=== PATIENT | female | born 1950 | race Caucasian/White ===

== ENCOUNTER 2016-09-30 11:51 | Inpatient (IN) | payer OTHER, MEDICARE ==
[~2016-09-30] VITALS: Ht 160 cm; Wt 74.8 kg
--- NOTE | 2016-09-30 12:05 | NUR ---
PT TO C/O SOB. STATES SHE WEARS O2 2.5L AT NIGHT. PT CALLED DR RIVERA WHO ADVISED PT TO COME TO ED FOR EVAL. RA SATS 94% IN TRIAGE. NO OBVIOUS RESP DISTRESS NOTED. PT DENIES PAIN.
--- NOTE | 2016-09-30 12:31 | ED DYSPNEA/ASTHMA COMPLAINT ---
History of Present Illness General Chief Complaint: Dyspnea (COPD, CHF, Other) Stated Complaint: LOW O2 SENT BY MIGUEL Source: patient, old records Exam Limitations: no limitations Vital Signs & Intake/Output Vital Signs & Intake/Output Vital Signs Date Time Temp Pulse Resp B/P Pulse O2 O2 Flow FiO2 Ox Delivery Rate 10/02 0000 96 Nasal 1.0L Cannula 10/01 2340 98.6 80 20 90/50 94 Nasal 2.0L Cannula 10/01 2046 94 Nasal 2.0L Cannula 10/01 1702 94 Nasal 2.0L Cannula 10/01 1558 98.5 84 19 110/60 96 Nasal 2.0L Cannula 10/01 1549 Nasal 2.0L Cannula ED Intake and Output 10/02 0000 10/01 1200 Intake Total 1070 260 Output Total Balance 1070 260 Intake, IV 50 20 Intake, Oral 1020 240 Number 0 1 Bowel Movements Allergies Coded Allergies: ampicillin (UNKNOWN 11/28/15) atorvastatin (UNKNOWN 11/28/15) ciprofloxacin (From CIPRO) (UNKNOWN 11/28/15) dicyclomine (UNKNOWN 11/28/15) estradiol (UNKNOWN 11/28/15) simvastatin (UNKNOWN 11/28/15) sulfamethoxazole (From SEPTRA) (DIARRHEA 11/28/15) trimethoprim (From SEPTRA) (DIARRHEA 11/28/15) Triage Note: PT TO C/O SOB. STATES SHE WEARS O2 2.5L AT NIGHT. PT CALLED DR RIVERA WHO ADVISED PT TO COME TO ED FOR EVAL. RA SATS 94% IN TRIAGE. NO OBVIOUS RESP DISTRESS NOTED. PT DENIES PAIN. Triage Nurses Notes Reviewed? yes Onset: Gradual Duration: day(s): (5) Timing: recent history Severity: moderate Activities at Onset: none Prior Episodes/Possible Cause: occasional episodes Modifying Factors: Improves With: immobilization. HPI: Patient is a 66-year-old female with history of COPD presenting to the emergency department which chief complaint increasing shortness of breath 5 days. She reports that she usually uses 2 L nasal cannula at night but has required oxygen all day everyday for 5 days. She called her planting material carrier who told her to come to the emergency department for evaluation. She reports nonproductive cough. No fevers or chills. No centrality or denies recent antibiotic use. Exertion seems to make the symptoms worse nothing seems to make it better. Patient also reports she feels tight and has been wheezing more often. Denies chest pain or palpitations. (VARGAS VALERA,ELVA) Reconcile Medications Albuterol Sulfate (Ventolin Hfa) 90 MCG HFA.AER.AD 2 PUF INH Q4-6 PRN PRN BREATHING PROBLEMS (Reported) Amitriptyline HCl 25 MG TABLET 1 TAB PO QPM FIBRO (Reported) Cholecalciferol (Vitamin D3) (Vitamin D) 2,000 UNIT TABLET 4,000 UNIT PO DAILY SUPP (Reported) Citalopram Hydrobromide (Citalopram HBr) 40 MG TABLET 1 TAB PO DAILY MENTAL HEALTH (Reported) Clonazepam 0.5 MG TABLET 1 TAB PO DAILY NEEDED AXNITY (Reported) Cyanocobalamin (Vitamin B-12) 1,000 MCG TABLET 1 TAB PO DAILY SUPP (Reported) Fish Oil/Borage/Flax/Om3,6,9#1 (Loring 3-6-9 1,200 MG Softgel) 1,200 MG CAPSULE 1 CAP PO DAILY SUUP (Reported) Fluticasone/Salmeterol (Advair 250-50 Diskus) 250 MCG-50 MCG/DOSE BLST.W.DEV 1 PUF INH BID BREATHING PROBLEMS (Reported) Melatonin (Melatin) 3 MG TABLET 3 MG PO DAILY INSOMNIA (Reported) Metformin HCl (Metformin HCl ER) 500 MG TAB.ER.24H 1 TAB PO SEE ADMIN CRITERIA DIABETES (Reported) 1 TAB MORNING 2 TAB EVENING Pantoprazole Sodium 40 MG TABLET.DR 1 TAB PO DAILY GI (Reported) Rosuvastatin Calcium (Crestor) 10 MG TABLET 1 TAB PO DAILY CHOLESTEROL ( Reported) Tiotropium Concord (Spiriva) 18 MCG CAP.W.DEV 1 CAP INH DAILY BREATHING PROBLEMS (Reported) (KAYLYNN CORDON,REBECCA) Past History Travel History Traveled to [place] past 21 day No Medical History Any Pertinent Medical History? see below for history Respiratory: COPD, 02 PRN Musculoskeletal: fibromyalgia, osteoarthritis Endocrine: diabetes Pneumonia Vaccine: 02/08/11 Influenza Vaccine: 06/13/15 Surgical History Surgical History: non-contributory Psychosocial History Who do you live with Spouse Services at Home Oxygen What is your primary language Mosotho Tobacco Use: Quit >30 days ago ETOH Use: denies use Illicit Drug Use: denies illicit drug use Family History Family History, If Any: Relation not specified for: FH: diabetes mellitus FH: lung cancer Hx Contributory? No (ELVA GOODMAN) Review of Systems Review of Systems Constitutional: Reports: no symptoms. Comments Review of systems: See HPI, All other systems negative. Constitutional, no chills fever or weight loss HEENT: No visual changes no sore throat Cardiovascular: No chest pain ,palpitation , orthopnea or ankle swelling Skin, no jaundice no rashes Respiratory: No sputum or hemoptysis GI: No nausea no vomiting : No dysuria No hematuria Muscle skeletal: no back pain, no neck pain, Neurologic: No numbness no confusion, no headaches Psych: No stress anxiety Immunology: No splenectomy or history of AIDS (ELVA GOODMAN) Physical Exam Physical Exam General Appearance: well developed/nourished, no apparent distress, alert, awake , comfortable Respiratory: chest non-tender, no respiratory distress, wheezing Comments: Well-developed well-nourished person in no acute distress HEENT: Pupils equally round and reactive to light and accommodation. Nose is atraumatic. External auditory canal and Tympanic membranes clear. Pharynx normal. No swelling or edema. Neck: Supple, no lymphadenopathy, normal range of motion without pain or tenderness Back: Nontender, no CVA tenderness. Full range of motion Cardiovascular: Regular rate and rhythms no murmurs rubs or gallops, normal JVP Respiratory: Chest nontender. No respiratory distress.mild wheezing to auscultation bilaterally, diminished at bases bilaterally. Extremity: No edema, no calf tenderness to palpation, normal and equal pulses. Neuro: Alert oriented x3 Skin: No appreciable rash on exposed skin, skin is warm and dry. Psych: Mood and affect is normal, memory and judgment is normal. Core Measures ACS in differential dx? Yes Severe Sepsis Present: No Septic Shock Present: No (ELVA GOODMAN) Progress Differential Diagnosis: copd EXACERBATION, ASTHMA, PNEUMONIA, BRONCHITIS, PNEUMOTHORAX, acs, chf, Plan of Care: Orders Procedure Date/time Status CBC WITHOUT DIFFERENTIAL 10/02 0600 Complete Anticipated Discharge 10/02 UNK Active RT: Evaluation 10/01 1224 Active TRC EVALUATION (GEN) 10/01 UNK Complete THERAPIST ORDERS 10/01 UNK Complete OXYGEN SETUP (GEN) 10/01 UNK Complete Current Medications Sig/Zakia Start time Last Medication Dose Stop Time Status Admin Acetaminophen 650 MG Q6P PRN 09/30 1744 AC (Tylenol) Clonazepam 0.5 MG DAILY NEEDED 09/30 1744 AC (KlonoPIN) 10/07 1743 Laboratory Tests 10/02/16 0612: CBC w Diff NO MAN DIFF REQ, RBC 4.07 L, MCV 89.7, MCH 30.1, RDW 13.3, MPV 8.9, Gran % 82.4 H, Lymphocytes % 11.2 L, Monocytes % 6.1, Eosinophils % 0.1, Basophils % 0.2, Absolute Granulocytes 11.6 H, Absolute Lymphocytes 1.6, Absolute Monocytes 0.9 H, Absolute Eosinophils 0, Absolute Basophils 0, PUBS MCHC 33.6 Diagnostic Imaging: Viewed by Me: Radiology Read. Discussed w/RAD: Radiology Read. Radiology Impression: RESENT AGE: 66 PATIENT ACCOUNT NO: [id number] : 49 LOCATION: [facility] ORDERING PHYSICIAN: ELVA VALERA SERVICE DATE: 09/30/16 EXAM TYPE: RAD - XRY-CHEST XRAY, PA AND LATERAL EXAMINATION: XR CHEST CLINICAL INFORMATION: Cough and shortness of breath COMPARISON: CXR from [address] from 04/04/2016 TECHNIQUE: 2 views of the chest were obtained. FINDINGS: There is pulmonary emphysema associated with enhanced, but stable reticular markings in both lungs. No acute pulmonary consolidation, interstitial edema, hilar lymphadenopathy or pleural effusion. There is surgical change from wedge resection from the medial right apex. Cardiac silhouette remains normal in size. There is atherosclerotic calcification of the aortic arch. No acute findings within the mildly degenerated thoracic spine. IMPRESSION: 1. Pulmonary emphysema. 2. No evidence of pneumonia or other acute pulmonary process compared to 07/05/2015. DICTATED BY: TODD PALAFOX MD DATE/TIME DICTATED:09/30/161316 SCISSORS GRINDER:AVERY DATE/TIME TRANSCRIBED:09/30/161316 CONFIDENTIAL, DO NOT COPY WITHOUT APPROPRIATE AUTHORIZATION. <Electronically signed in Other Vendor System> SIGNED BY: TODD PALAFOX MD 09/30/16 1323 Initial ED EKG: SINUS RHYTHM AT 81 BPM, BORDERLINE LEFT AXIS DEVIATION Comments: On arrival patient no acute distress, oxygen saturation on room air is 93, it does trend down to 89 with movement. Patient placed on oxygen for comfort. We will assess chest x-ray, CBC, CMP,, troponin. Patient does have bilateral wheezing and diminished lung sounds bilaterally. Patient will have albuterol treatment. Patient is not tachycardic, patient not tachypneic. No unilateral leg swelling. No recent surgery. I do not think this person has a pulmonary embolus. Patient appears comfortable. No acute distress. She'll also receive IV Solu- Medrol. 09/30/2016 2:36:[address] Cabrera, patient's planting material carrier, patient will be admitted for COPD exacerbation. Patient desaturates to 87% on room air after ambulation. (ELVA GOODMAN) Departure Departure Time of Disposition: 1528 Disposition: STILL A PATIENT Condition: Stable Clinical Impression Primary Impression: COPD exacerbation Referrals: COBY CORDON,ZACH Brooke (PCP/Family) Departure Forms: Customer Survey General Discharge Information Admission Note Spoke With: JAYNE ROBLES MD Documentation of Exam: Documentation of any treatments & extenuating circumstances including Concerns Regarding Discharge (functional status, medication knowledge or non-compliance, living conditions, etc.) that warrant an admission rather than observation: Patient requiring several DuoNeb treatments, planting material carrier consultation, IV antibiotics, titration from oxygen as patient is requiring more oxygen than baseline. (ELVA GOODMAN) PA/BORING MACHINE OPERATOR HELPER Co-Sign Statement Statement: ED Attending supervision documentation- [X] I saw and evaluated the patient. I have also reviewed all the pertinent lab results and diagnostic results. I agree with the findings and the plan of care as documented in the PA's/BORING MACHINE OPERATOR HELPER's documentation. [X] I have reviewed the ED Record and agree with the PA's/BORING MACHINE OPERATOR HELPER's documentation. [] Additions or exceptions (if any) to the PAs/BORING MACHINE OPERATOR HELPER's note and plan are summarized below: [] (KAYLYNN CORDON,REBECCA) Critical Care Note Critical Care Note Critical Care Time: non-applicable (ELVA GOODMAN)
--- NOTE | 2016-09-30 12:49 | NUR ---
IV ACCESS ESTABLISHED #20 LFA LABS DRAWN/SENT (SST, LAVENDER AND BLUE TOP TUBES) RESP PAGED FOR NEB TREATMENT
[2016-09-30 12:51] LABS: ABSOLUTE BASOPHIL COUNT 0 /CUMM (0.0-0.2); ABSOLUTE EOSINOPHIL COUNT 0.3 /CUMM (0.0-0.7); ABSOLUTE GRANULOCYTE CT 4.2 /CUMM (1.4-6.5); ABSOLUTE LYMPH COUNT 2.1 /CUMM (1.2-3.4); ABSOLUTE MONOCYTE COUNT 0.7 /CUMM (0.10-0.60); BASOPHIL % 0.3 % (0.0-2.0); EOSINOPHIL % 4.2 % (0-5); GRANULOCYTE % 57.4 % (42.2-75.2); HEMATOCRIT 38.8 % (37-47); MEAN CORPUSCULAR HGB CONC 33.7 G/DL (33.0-37.0); MEAN CORPUSCULAR VOLUME 88.8 FL (81.0-99.0); MEAN PLATELET VOLUME 8.6 FL (7.4-10.4); PLATELET COUNT 273 /CUMM (130-400); RBC DISTRIBUTION WIDTH 13.1 % (11.5-14.5); RED BLOOD CELL CT 4.37 /CUMM (4.20-5.40); WHITE BLOOD CELL COUNT 7.2 /CUMM (4.8-10.8)
--- NOTE | 2016-09-30 12:54 | NUR ---
PT MEDICATED WITH SOLUMEDROL TAKEN TO RADIOLOGY VIA STRETCHER AT THIS TIME.
[2016-09-30 13:07] LABS: PT 10.6 SEC (9.4-12.5); PTT 29 SEC (25-37)
--- NOTE | 2016-09-30 13:12 | NUR ---
RESP. IN ROOM FOR NEB TREATMENT
--- NOTE | 2016-09-30 13:25 | RADIOLOGY REPORT ---
EXAMINATION: XR CHEST CLINICAL INFORMATION: Cough and shortness of breath COMPARISON: CXR from 07/05/[address] from 04/04/2016 TECHNIQUE: 2 views of the chest were obtained. FINDINGS: There is pulmonary emphysema associated with enhanced, but stable reticular markings in both lungs. No acute pulmonary consolidation, interstitial edema, hilar lymphadenopathy or pleural effusion. There is surgical change from wedge resection from the medial right apex. Cardiac silhouette remains normal in size. There is atherosclerotic calcification of the aortic arch. No acute findings within the mildly degenerated thoracic spine. IMPRESSION: 1. Pulmonary emphysema. 2. No evidence of pneumonia or other acute pulmonary process compared to 07/05/2015.
[2016-09-30] MEDS ORDERED: PANTOPRAZOLE SO40 M1 PO (13:57)
[2016-09-30] MEDS ORDERED: ADVAIR 250-501 EACH INH (13:57)
[2016-09-30] MEDS ORDERED: AMITRIPTYLINE H25 M2 PO (13:58)
[2016-09-30] MEDS ORDERED: CRESTOR10 M1 PO (13:58)
[2016-09-30] MEDS ORDERED: CITALOPRAM HBR40 MG PO (13:58)
[2016-09-30] MEDS ORDERED: SPIRIVA18 MCG INH (13:58)
[2016-09-30] MEDS ORDERED: METFORMIN HCL500 M4 PO (13:58)
[2016-09-30] MEDS ORDERED: VENTOLIN HFA18 GM INH (13:59)
--- NOTE | 2016-09-30 14:01 | NUR ---
SPOKE WITH MARV IN DIETARY AND ORDERED A CONSISTENT CARB 1 TRAY FOR PATIENT
--- NOTE | 2016-09-30 14:09 | NUR ---
PT AMBULATED IN HALLWAY, SATS MAINTAINED AT 90-91% WHILE WALKING [facility] PT STATES "I FEEL LIKE I JUST RAN A MARATHON". SOTO KAYE AWARE OF SAME.
--- NOTE | 2016-09-30 14:30 | NUR ---
LUNCH TRAY DELIVERED TO PATIENT
--- NOTE | 2016-09-30 15:24 | NUR ---
IV ZITHROMAX INFUSION INITIATED PER ORDERS SOTO KAYE. ALSO PER SOTO KAYE, NO B/C'S NEEDED.
--- NOTE | 2016-09-30 16:00 | NUR ---
DR RIVERA AT BEDSIDE FOR EVAL
--- NOTE | 2016-09-30 16:31 | NUR ---
SPOKE WITH AMARILIS IN DINING SERVICES FOR CONSISTENT CARB 1 DINNER TRAY.
--- NOTE | 2016-09-30 16:53 | History & Physical ---
LUPE ELIZABETH MD 09/30/16 3946: General Information and HPI MD Statement: I have seen and personally examined CRYSTAL MENDOZA and documented this H&P. The patient is a 66 year old F who presented with a patient stated chief complaint of low oxygen saturations. Source of Information: patient Exam Limitations: no limitations History of Present Illness: Ms. Mendoza is a pleasant 66 year old female with PMH COPD on home O2 as needed and followed by Dr. Davila, fibromyalgia, osteoarthritis and type 2 diabetes mellitus who presented to the [place] ED after a 5 day history of low oxygen saturations. Patient reports that over the last few days, she has noted oxygen saturations as low as 82-89% with minimal exertion while on supplemental oxygen to about 2 L. She is normally not on oxygen during the day but has required it secondary to dizziness and lethargy when her oxygen saturations drop. She endorses lethargy, dizziness and substernal chest pain when her oxygen levels drop. She also endorses recent increase in her inhaler usage, though she ran out of her nebulizer this last month.She denies fever, chills, palpitations, cough, wheezing, sputum production, abodminal pain, weakness, recent travel or recent sick contacts. Social history is significant for a 34 pack year history of smoking 2-3 ppd. She quit 19 years ago. Her back order clerk is Dr. Schmitz and her glassware defect repairer is Dr. Davila. Allergies/Medications Allergies: Coded Allergies: ampicillin (UNKNOWN 11/28/15) atorvastatin (UNKNOWN 11/28/15) ciprofloxacin (From CIPRO) (UNKNOWN 11/28/15) dicyclomine (UNKNOWN 11/28/15) estradiol (UNKNOWN 11/28/15) simvastatin (UNKNOWN 11/28/15) sulfamethoxazole (From SEPTRA) (DIARRHEA 11/28/15) trimethoprim (From SEPTRA) (DIARRHEA 11/28/15) Compliance With Home Meds: GOOD Past History Travel History Traveled to [place] past 21 day No Medical History Respiratory: COPD, 02 PRN Musculoskeletal: fibromyalgia, osteoarthritis Endocrine: diabetes Pneumonia Vaccine: 02/08/11 Influenza Vaccine: 06/13/15 Surgical History Surgical History: non-contributory Past Family/Social History Family History Relations & Conditions if any Relation not specified for: FH: diabetes mellitus FH: lung cancer Psychosocial History Where do you live? Home Services at Home: Oxygen Primary Language: Bulgarian Smoking Status: Former Smoker ETOH Use: denies use Illicit Drug Use: denies illicit drug use Functional Ability ADLs Independent: dressing, eating, toileting, bathing. Ambulation: independent IADLs Independent: shopping, housework, finances, food prep, telephone, transportation , medication admin. Review of Systems Review of Systems Constitutional: Reports: malaise. Denies: chills, fever, weakness. EENTM: Denies: blurred vision, visual changes, nasal congestion, throat pain. Cardiovascular: Denies: chest pain, palpitations, peripheral edema, syncope. Respiratory: Reports: short of breath. Denies: cough, hemoptysis, sputum production, wheezing. GI: Denies: abdominal pain, bloating, constipation, diarrhea. Genitourinary: Denies: dysuria. Musculoskeletal: Denies: back pain. Skin: Denies: change in skin color, change in hair/nails. Neurological/Psychological: Denies: confusion, headache, paresthesia, tingling. Hematologic/Endocrine: Denies: bruising, bleeding. Immunologic/Allergic: Denies: splenectomy. Exam & Diagnostic Data Last 24 Hrs of Vital Signs/I&O Vital Signs Date Time Temp Pulse Resp B/P Pulse O2 O2 Flow FiO2 Ox Delivery Rate 09/30 1810 98.4 98 20 111/71 93 Nasal 2.0L Cannula 09/30 1425 98.0 87 20 119/79 93 Room Air 09/30 1314 93 09/30 1300 91 Room Air Room Air 09/30 1254 97.0 81 22 112/67 90 Room Air 09/30 1202 96.6 96 20 115/75 94 Room Air Intake & Output 09/30 1600 09/30 0800 09/30 0000 Intake Total 490 Output Total Balance 490 Intake, IV 250 Intake, Oral 240 Patient 165 lb Weight Physical Exam General Appearance Alert, Oriented X3, Cooperative, No Acute Distress Skin No Significant Lesion HEENT Atraumatic, PERRLA, Mucous Membr. moist/pink Neck Supple, No JVD Lymphatic Cervical nl Cardiovascular Regular Rate, Normal S1, Normal S2, No Murmurs Lungs Normal Air Movement, Rhonchi bilateral lung parikh Abdomen Normal Bowel Sounds, Soft, No Tenderness, No Hepatospenomegaly Neurological Normal Gait, Normal Speech, Strength at 5/5 X4 Ext, Normal Tone Extremities No Clubbing, No Cyanosis, No Edema, Mild tenderness to palpation of left calf, no erythema, negative Homans. Vascular Pulses Symmetrical Last 24 Hrs of Labs/Olu: Laboratory Tests 09/30/16 1245: Anion Gap 12, Estimated GFR > 60, BUN/Creatinine Ratio 21.1, Glucose 94, Calcium 9.8, Magnesium 2.2, Total Bilirubin 0.9, AST 23, ALT 34, Alkaline Phosphatase 53 , Troponin I < 0.01, Total Protein 6.9, Albumin 4.2, Globulin 2.7, Albumin/ Globulin Ratio 1.6, PT 10.6, INR 1.01, APTT 29, CBC w Diff NO MAN DIFF REQ, RBC 4.37, MCV 88.8, MCH 30.0, RDW 13.1, MPV 8.6, Gran % 57.4, Lymphocytes % 28.5, Monocytes % 9.6 H, Eosinophils % 4.2, Basophils % 0.3, Absolute Granulocytes 4.2, Absolute Lymphocytes 2.1, Absolute Monocytes 0.7 H, Absolute Eosinophils 0.3, Absolute Basophils 0, PUBS MCHC 33.7 Diagnostic Data EKG Results NSR HR 81, QTC 455. CXR Results EXAMINATION: XR CHEST CLINICAL INFORMATION: Cough and shortness of breath COMPARISON: CXR from 07/05/[address] from 04/04/2016 TECHNIQUE: 2 views of the chest were obtained. FINDINGS: There is pulmonary emphysema associated with enhanced, but stable reticular markings in both lungs. No acute pulmonary consolidation, interstitial edema, hilar lymphadenopathy or pleural effusion. There is surgical change from wedge resection from the medial right apex. Cardiac silhouette remains normal in size. There is atherosclerotic calcification of the aortic arch. No acute findings within the mildly degenerated thoracic spine. IMPRESSION: 1. Pulmonary emphysema. 2. No evidence of pneumonia or other acute pulmonary process compared to 07/05/2015. Assessment/Plan Assessment: Ms. Mendoza is a pleasant 66 year old female with PMH COPD on home O2 as needed and followed by Dr. Davila, fibromyalgia, osteoarthritis and type 2 diabetes mellitus who presents with a 5 day history of low oxygen saturations. Patient has a home oximeter and has been using it more frequently as she has been feeling lethargic and occasionally dizzy on ambulation. With these low O2 saturations, she has been required to wear her home O2 continuously as compared to just at night. Patient notes that her oxygen level has dropped as low as 82% at home while walking up one flight of stairs. In the ED: Vital signs showed T 96.6, HR 96, RR 20, BP 115/75 and O2 saturation of 94% on 3 L NC. Labs showed normal CBC, unremarkable BEP except for slightly elevated BUN to 19, Mg 2.2, trop <0.01 and INR 1.01. CXR was done and showed pulmonary emphysema. EKG was done and showed NSR at HR 81 and QTC 455. Patient was admitted to the general medicine floor and the following is the management: 1. Acute hypoxic respiratory failure secondary to COPD exacerbation * Increasing O2 requirements along with dropping O2 saturations with occasional wheeze on lung examination * Provide continuous O2 for now, taper down as tolerated * TRC nebs, symbicort, spiriva * IV solumedrol 40 mg IV Q8H * Zithromax x 5 days * Pulm consult with Dr. Davila appreciated, follow recommendations 2. Diabetes mellitus, type 2 * Hold metformin * Accuchecks TIDAC/HS * Novolog sliding scale started * Monitor FSGs in setting of high dose steroids 3. Mental health * Continue celexa and amitriptyline QPM * Klonopin 0.5 mg PO daily as needed FULL CODE DVTP: SC Lovenox Mild pain pathway Diabetic diet As Ranked By This Provider Problem List: 1. Chronic obstructive lung disease 2. Fibromyalgia 3. DVT prophylaxis Core Measures/Miscellaneous Acute Coronary Syndrome ACS Diagnosis: No Cerebrovascular Accident CVA/TIA Diagnosis: No Congestive Heart Failure CHF Diagnosis: No Venous Thromboembolism VTE Risk Factors: Acute medical illness, Age > 40 VTE Prophylaxis Ordered Inpt: Mech & Pharm No Mech VTE prophylaxis d/t: No contraindications No VTE Pharm Prophylaxis d/t: No contraindications VTE Diagnosis: No VTE Type: NONE VTE Confirmed by (Test): NONE Severe Sepsis Severe Sepsis Present: No Septic Shock Septic Shock Present: No Miscellaneous Documentation Attending Case Discussed With: JAYNE ROBLES MD Primary Care Physician: ZACH TENORIO MD Patient sees these Specialists Dr. Schmitz, cardiology Dr. Davila, Pulmonology Level of Patient Care: General Medicine RAYO ARCEO 09/30/169: Resident Review Statement Resident Statement: examined this patient, discussed with [employer] compliance internship, amended to note Other Findings: 66-year-old lady with past medical history of COPD on oxygen at night, fibromyalgia, diabetic type II came with chief complaint of desaturation for about 5 days. Patient reported she was not feeling well about 5 days ago and her O2 saturation was around 85% on room air and she also complained of shortness of breath this days. Patient was using her oxygen during the days as well. Patient reports having minimal cough and wheezing today. Patient denies any fever, sick contacts, chills, nausea, vomiting, abdominal pain. Patient does report of mild left calf pain. She called Dr. Davila and was advised to come to the ED. She desaturated to 87% on ambulation on room air. Vital signs are noted above Physical exam is notable for bilateral upper mild expiratory wheezing CBC, troponin, BEP were unremarkable EKG NSR HR 81, QTC 455. CXR 1. Pulmonary emphysema. 2. No evidence of pneumonia or other acute pulmonary process compared to 07/05/2015. Assessment and plan COPD exacerbation * Admit the patient to general floor * Keep O2 saturation over 92% * TRC nebs * IV Solu-Medrol 40 mg every 8 hours * IV azithromycin 250 mg dailyfor 3-5 days Left leg pain * rule out DVT with doppler ultrasound Hyperlipidemia, anxiety, ,depression, GERD * Continue home medications Diabetes * Metformin, sliding scale insulin, fingersticks, diabetic diet DVT Prophylaxis is mechanical and Lovenox, full code, Tylenol for pain, diabetic diet JAYNE ROBLES 10/02/16 1111: General Information and HPI Allergies/Medications Home Med list Albuterol Sulfate (Ventolin Hfa) 90 MCG HFA.AER.AD 2 PUF INH Q4-6 PRN PRN BREATHING PROBLEMS (Reported) Amitriptyline HCl 25 MG TABLET 1 TAB PO QPM FIBRO (Reported) Cholecalciferol (Vitamin D3) (Vitamin D) 2,000 UNIT TABLET 4,000 UNIT PO DAILY SUPP (Reported) Citalopram Hydrobromide (Citalopram HBr) 40 MG TABLET 1 TAB PO DAILY MENTAL HEALTH (Reported) Clonazepam 0.5 MG TABLET 1 TAB PO DAILY NEEDED AXNITY (Reported) Cyanocobalamin (Vitamin B-12) 1,000 MCG TABLET 1 TAB PO DAILY SUPP (Reported) Fish Oil/Borage/Flax/Om3,6,9#1 ([place] 3-6-9 1,200 MG Softgel) 1,200 MG CAPSULE 1 CAP PO DAILY SUUP (Reported) Fluticasone/Salmeterol (Advair 250-50 Diskus) 250 MCG-50 MCG/DOSE BLST.W.DEV 1 PUF INH BID BREATHING PROBLEMS (Reported) Melatonin (Melatin) 3 MG TABLET 3 MG PO DAILY INSOMNIA (Reported) Metformin HCl (Metformin HCl ER) 500 MG TAB.ER.24H 1 TAB PO SEE ADMIN CRITERIA DIABETES (Reported) 1 TAB MORNING 2 TAB EVENING Pantoprazole Sodium 40 MG TABLET.DR 1 TAB PO DAILY GI (Reported) Prednisone 10 MG TABLET 1 TAB OTHER SI COPD exacerbation Please: take 4 tabs on 10/03/16 then take 3 tabs on 10/04/16 and 10/05/16 then take 2 tabs on 10/06/16 and 10/07/16 then take 1 tab on 10/08/16 and 10/09/16 then stop. Rosuvastatin Calcium (Crestor) 10 MG TABLET 1 TAB PO DAILY CHOLESTEROL ( Reported) Tiotropium [place] (Spiriva) 18 MCG CAP.W.DEV 1 CAP INH DAILY BREATHING PROBLEMS (Reported) Attending MD Review Statement Attending Statement Attending MD Statement: examined this patient, discuss w/resident/PA/PLATE FINISHER, agreed w/resident/PA/PLATE FINISHER, reviewed EMR data (avail) Attending Assessment/Plan: 66-year-old female with past medical history of COPD on nocturnal oxygen at 2 L at home who presented with chief complaint of coughing. Patient over the last few days has been using oxygen 24 hours a day at 3 L due to her subjective feeling of shortness of breath and decreased oxygen saturation on pulse oximetry at home. Patient denies any fevers or chills and any sick contacts. Patient in ER was found to have oral to saturations of 88% on room air and also worsening of her O2 sats was seen with ambulation. Patient is being admitted for COPD exacerbation. On exam she was found to have rhonchi bilateral lung parikh. Assessment and plan-acute COPD exacerbation with hypoxic respiratory failure in patient with chronic respiratory failure. Patient was given IV steroids in the ER and chest x-ray done was negative for any infiltrates. We will admit her to medicine. We'll continue her on steroids and we'll also give her Zithromax. Will get respiratory consult to do nebulization. Left leg pain will get DVT ultrasound to rule out deep venous thrombosis.
--- NOTE | 2016-09-30 17:27 | Cons- Pulmonary ---
General Information and HPI Consulting Request Date of Consult: 09/30/16 Requested By: Dr. Chu Reason for Consult: COPD exacerbation Source of Information: patient, old records Exam Limitations: no limitations History of Present Illness: The patient is a 66-year-old female well-known to me from previous outpatient visits and hospitalizations. The patient has a history of COPD, noting she has typically not oxygen dependent. She uses supplemental oxygen at night for nocturnal hypoxia. The patient contacted my office earlier today with a 5 day complaint of increased shortness of breath. The patient had been using her oxygen around the clock without relief. She has had a nonproductive cough. She has increased wheezing and chest congestion. She has increased chest tightness. She was evaluated in the ED and found to have oxygen desaturation in the 80s with ambulation, and she was reported as being very short of breath. Allergies/Medications Allergies: Coded Allergies: ampicillin (UNKNOWN 11/28/15) atorvastatin (UNKNOWN 11/28/15) ciprofloxacin (From CIPRO) (UNKNOWN 11/28/15) dicyclomine (UNKNOWN 11/28/15) estradiol (UNKNOWN 11/28/15) simvastatin (UNKNOWN 11/28/15) sulfamethoxazole (From SEPTRA) (DIARRHEA 11/28/15) trimethoprim (From APRRA) (DIARRHEA 11/28/15) Home Med List: Albuterol Sulfate (Ventolin Hfa) 90 MCG HFA.AER.AD 2 PUF INH Q4-6 PRN PRN BREATHING PROBLEMS (Reported) Amitriptyline HCl 25 MG TABLET 1 TAB PO QPM FIBRO (Reported) Cholecalciferol (Vitamin D3) (Vitamin D) 2,000 UNIT TABLET 4,000 UNIT PO DAILY SUPP (Reported) Citalopram Hydrobromide (Citalopram HBr) 40 MG TABLET 1 TAB PO DAILY MENTAL HEALTH (Reported) Clonazepam 0.5 MG TABLET 1 TAB PO DAILY NEEDED AXNITY (Reported) Cyanocobalamin (Vitamin B-12) 1,000 MCG TABLET 1 TAB PO DAILY SUPP (Reported) Fish Oil/Borage/Flax/Om3,6,9#1 ([place] 3-6-9 1,200 MG Softgel) 1,200 MG CAPSULE 1 CAP PO DAILY SUUP (Reported) Fluticasone/Salmeterol (Advair 250-50 Diskus) 250 MCG-50 MCG/DOSE BLST.W.DEV 1 PUF INH BID BREATHING PROBLEMS (Reported) Melatonin (Melatin) 3 MG TABLET 3 MG PO DAILY INSOMNIA (Reported) Metformin HCl (Metformin HCl ER) 500 MG TAB.ER.24H 1 TAB PO SEE ADMIN CRITERIA DIABETES (Reported) 1 TAB MORNING 2 TAB EVENING Pantoprazole Sodium 40 MG TABLET.DR 1 TAB PO DAILY GI (Reported) Rosuvastatin Calcium (Crestor) 10 MG TABLET 1 TAB PO DAILY CHOLESTEROL ( Reported) Tiotropium [place] (Spiriva) 18 MCG CAP.W.DEV 1 CAP INH DAILY BREATHING PROBLEMS (Reported) Current Medications: Current Medications Sig/Zakia Start time Last Medication Dose Route Stop Time Status Admin Albuterol Sulfate 3 ML ONCE ONE 09/30 1230 DC 09/30 INH 09/30 1231 1313 Azithromycin 500 MG ONCE ONE 09/30 1445 DC 09/30 Dextrose/Water 250 ML IV 09/30 1544 1524 Methylprednisolone 0 .STK-MED ONE 09/30 1253 DC .ROUTE Methylprednisolone 125 MG ONCE ONE 09/30 1230 DC 09/30 IV 09/30 1231 1255 Past History Travel History Traveled to [place] past 21 day No Medical History Respiratory: COPD, 02 PRN Musculoskeletal: fibromyalgia, osteoarthritis Endocrine: diabetes Surgical History Surgical History: non-contributory Family History Relations & Conditions If Any: Relation not specified for: FH: diabetes mellitus FH: lung cancer Psychosocial History Services at Home: Oxygen ETOH Use: denies use Illicit Drug Use: denies illicit drug use Exam & Diagnostic Data Last 24 Hrs of Vital Signs/I&O Vital Signs Date Time Temp Pulse Resp B/P Pulse O2 O2 Flow FiO2 Ox Delivery Rate 09/30 1425 98.0 87 20 119/79 93 Room Air 09/30 1314 93 09/30 1300 91 Room Air Room Air 09/30 1254 97.0 81 22 112/67 90 Room Air 09/30 1202 96.6 96 20 115/75 94 Room Air Intake & Output 09/30 1600 09/30 0800 09/30 0000 Intake Total 490 Output Total Balance 490 Intake, IV 250 Intake, Oral 240 Patient 165 lb Weight Physical Exam General Appearance: no apparent distress, alert, comfortable Head: atraumatic, normal appearance Eyes: Bilateral: PERRL. Neck: supple Respiratory: no respiratory distress, lungs clear, wheezing Cardiovascular: regular rate/rhythm Gastrointestinal: normal bowel sounds, soft, non-tender Extremities: no edema Skin: intact, normal color, warm/dry Last 48 Hrs of Labs/Olu: Laboratory Tests 09/30/16 1245: Anion Gap 12, Estimated GFR > 60, BUN/Creatinine Ratio 21.1, Glucose 94, Calcium 9.8, Magnesium 2.2, Total Bilirubin 0.9, AST 23, ALT 34, Alkaline Phosphatase 53 , Troponin I < 0.01, Total Protein 6.9, Albumin 4.2, Globulin 2.7, Albumin/ Globulin Ratio 1.6, PT 10.6, INR 1.01, APTT 29, CBC w Diff NO MAN DIFF REQ, RBC 4.37, MCV 88.8, MCH 30.0, RDW 13.1, MPV 8.6, Gran % 57.4, Lymphocytes % 28.5, Monocytes % 9.6 H, Eosinophils % 4.2, Basophils % 0.3, Absolute Granulocytes 4.2, Absolute Lymphocytes 2.1, Absolute Monocytes 0.7 H, Absolute Eosinophils 0.3, Absolute Basophils 0, PUBS MCHC 33.7 Diagnostic Data CXR Results 1. Pulmonary emphysema. 2. No evidence of pneumonia or other acute pulmonary process compared to 2014. Assessment/Plan Impression/Plan: 1. Acute exacerbation of COPD. 2. Hypoxia related to acute exacerbation of COPD. 3. History of diabetes. 4. Nocturnal hypoxemia. Recommendations: * TRC consult for nebulizer treatments. * Solu-Medrol 40 mg IV every 8 hours. * Azithromycin 250 mg orally daily for 5 days. * Attempt to wean supplemental oxygen down to off. * Monitor blood sugars while on high-dose steroids. * Continue home inhaler regimen. * DVT prophylaxis. * Thank you for a [place] me to participate in the care of this patient. I will follow her along with you and provide further recommendations as necessary. As always, please do not hesitate to contact me at any time with any issues. Consult Acknowledgment - Thank you for your consult request.
[2016-09-30] MEDS ORDERED: OMEGA 3-6-9 11200 MG PO (17:32)
[2016-09-30] MEDS ORDERED: VITAMIN B-121000 MC3 PO (17:32)
[2016-09-30] MEDS ORDERED: VITAMIN D2000 UNI1 PO (17:33)
[2016-09-30] MEDS ORDERED: MELATIN3 MG PO (17:34)
[2016-09-30] MEDS ORDERED: CLONAZEPAM0.5 M2 PO (17:35)
--- NOTE | 2016-09-30 17:38 | NUR ---
BED 210-1
--- NOTE | 2016-09-30 17:44 | NUR ---
DR ROBLES AT BEDSIDE FOR EVAL DINNER TRAY DELIVERED
--- NOTE | 2016-09-30 17:52 | NUR ---
REPORT TO VERENICE DE LA PAZ ON B
--- NOTE | 2016-09-30 18:12 | Admission Certification ---
Admission Certification Certification Statement - As attending physician, I certify that at the time of - admission, based on clinical presentation, severity of - symptoms, need for further diagnostic testing and - therapeutic interventions, and risk of adverse outcomes - without in-hospital treatment, in my clinical assessment, - this patient requires an acute hospital stay for a minimum - of two nights or longer. I have also considered psychsocial - factors such as support system, advanced age, financial - issues, cognitive issues, and failed out-patient treatments, - past re-admission history, safety of patient, and lack of - compliance as applicable. Specific rationale supporting this admission is: Acute COPD exacerbation with hypoxic respiratory failure
--- NOTE | 2016-09-30 18:16 | PN- Att Addend ---
Attending MD Review Statement Attending Statement Attending MD Statement: examined this patient, discuss w/resident/PA/COPY CENTER OPERATOR, agreed w/resident/PA/COPY CENTER OPERATOR, reviewed EMR data (avail) Attending Assessment/Plan: 66-year-old female with past medical history of COPD on nocturnal oxygen at 2 L at home who presented with chief complaint of coughing. Patient over the last few days has been using oxygen 24 hours a day at 3 L due to her subjective feeling of shortness of breath and decreased oxygen saturation on pulse oximetry at home. Patient denies any fevers or chills and any sick contacts. Patient in ER was found to have oral to saturations of 88% on room air and also worsening of her O2 sats was seen with ambulation. Patient is being admitted for COPD exacerbation. On exam she was found to have rhonchi bilateral lung parikh. Assessment and plan-acute COPD exacerbation with hypoxic respiratory failure in patient with chronic respiratory failure. Patient was given IV steroids in the ER and chest x-ray done was negative for any infiltrates. We will admit her to medicine. We'll continue her on steroids and we'll also give her Zithromax for 3 days 500 mg. Will get respiratory consult to do nebulization. Left leg pain will get DVT ultrasound to rule out deep venous thrombosis. Discussed with patient the care plan
--- NOTE | 2016-09-30 22:33 | ULTRASOUND REPORT ---
EXAMINATION: US TRIPLEX LOWER EXTREMITY, BILATERAL CLINICAL INFORMATION: Cramping. COMPARISON: None TECHNIQUE: Color-flow triplex imaging with spectral analysis and compression Doppler were performed on the bilateral lower extremities. FINDINGS: Respiratory variation, normal compression and augmented flow are noted throughout the bilateral lower extremities. The visualized common femoral vein, superficial femoral vein, profunda femoral vein, popliteal vein and midcalf peroneal and posterior tibial venous segments show no evidence of deep venous thrombosis. There is no Haynes's cyst. IMPRESSION: Normal triplex scan without evidence of deep venous thrombosis involving the bilateral lower extremities.
[2016-10-01 00:03] VITALS: BP 110/72
--- NOTE | 2016-10-01 04:58 | PN- Housestaff ---
Subjective Follow-up For: COPD exacerbation Left leg pain, RULE OUT DVT Subjective: Patient reports much improvement in the breathing, has less coughing, no pain on the left leg. Review of Systems Constitutional: Denies: chills, fever, weakness. EENTM: Reports: no symptoms. Cardiovascular: Reports: no symptoms. Respiratory: Reports: no symptoms. Gastrointestinal: Reports: no symptoms. Genitourinary: Reports: no symptoms. Musculoskeletal: Reports: no symptoms. Skin: Reports: no symptoms. Neurological/Psychological: Reports: no symptoms. Objective Last 24 Hrs of Vital Signs/I&O Vital Signs Date Time Temp Pulse Resp B/P Pulse O2 O2 Flow FiO2 Ox Delivery Rate 10/01 0003 97.8 89 18 110/72 95 Nasal 2.0L Cannula 10/01 0000 Nasal 2.5L Cannula 09/30 1810 98.4 98 20 111/71 93 Nasal 2.0L Cannula 09/30 1425 98.0 87 20 119/79 93 Room Air 09/30 1314 93 09/30 1300 91 Room Air Room Air 09/30 1254 97.0 81 22 112/67 90 Room Air 09/30 1202 96.6 96 20 115/75 94 Room Air Intake & Output 10/01 0800 10/01 0000 09/30 1600 Intake Total 260 480 490 Output Total Balance 260 480 490 Intake, IV 20 250 Intake, Oral 240 480 240 Number 1 Bowel Movements Patient 74.843 kg 74.843 kg Weight Physical Exam General Appearance: Alert, Oriented X3, Cooperative, No Acute Distress Skin: No Rashes, No Breakdown, No Significant Lesion HEENT: Atraumatic, PERRLA, EOMI, Mucous Membr. moist/pink Neck: Supple Cardiovascular: Regular Rate, Normal S1, Normal S2, No Murmurs Lungs: Clear to Auscultation, Normal Air Movement Abdomen: Normal Bowel Sounds, Soft, No Tenderness Neurological: Normal Speech, Strength at 5/5 X4 Ext, Normal Tone, Sensation Intact, Cranial Nerves 3-12 NL Extremities: No Clubbing, No Cyanosis, No Edema, Normal Pulses, No Tenderness/ Swelling Last 24 Hrs of Lab/Olu Results Last 24 Hrs of Labs/Mics: Laboratory Tests 09/30/16 1245: Anion Gap 12, Estimated GFR > 60, BUN/Creatinine Ratio 21.1, Glucose 94, Calcium 9.8, Magnesium 2.2, Total Bilirubin 0.9, AST 23, ALT 34, Alkaline Phosphatase 53 , Troponin I < 0.01, Total Protein 6.9, Albumin 4.2, Globulin 2.7, Albumin/ Globulin Ratio 1.6, PT 10.6, INR 1.01, APTT 29, CBC w Diff NO MAN DIFF REQ, RBC 4.37, MCV 88.8, MCH 30.0, RDW 13.1, MPV 8.6, Gran % 57.4, Lymphocytes % 28.5, Monocytes % 9.6 H, Eosinophils % 4.2, Basophils % 0.3, Absolute Granulocytes 4.2, Absolute Lymphocytes 2.1, Absolute Monocytes 0.7 H, Absolute Eosinophils 0.3, Absolute Basophils 0, PUBS MCHC 33.7 Assessment/Plan Assessment: 66-year-old lady with past medical history of COPD on oxygen at night, fibromyalgia, diabetic type II came with chief complaint of desaturation for about 5 days and her O2 saturation was around 85% on room air and she also complained of shortness of breath. Patient reports having minimal cough and wheezing today. Patient denies any fever, sick contacts, chills, nausea, vomiting, abdominal pain. Patient does report of mild left calf pain. She called Dr. Davila and was advised to come to the ED. She desaturated to 87% on ambulation on room air. Vital signs are noted above Physical exam is notable for bilateral upper mild expiratory wheezing CBC, troponin, BEP were unremarkable EKG NSR HR 81, QTC 455. CXR 1. Pulmonary emphysema. 2. No evidence of pneumonia or other acute pulmonary process compared to 07/05/2015. Assessment and plan COPD exacerbation symptoms much improved, nowheezing heard in the exam, no rhonchi * Keep O2 saturation over 92% * continue TRC nebs * continue IV Solu-Medrol 40 mg every 8 hours * PO azithromycin 250 mg daily for 5 days * F/u pulmonary recommendations Left leg pain - resolved cramps are resolved, no swelling noted. ruled out DVT with doppler ultrasound Hyperlipidemia, anxiety, ,depression, GERD * Continue home medications Diabetes * Metformin, sliding scale insulin, fingersticks, diabetic diet DVT Prophylaxis is mechanical and Lovenox, full code, Tylenol for pain, diabetic diet Problem List: 1. COPD exacerbation Pain Ratin Pain Location: pain and cramping on the posterior aspect of the left lower leg, resolved Pain Goal: Pain 4 or less Pain Plan: tylenol Tomorrow's Labs & Rationales: CBC and BEP
[2016-10-01 08:09] LABS: ABSOLUTE BASOPHIL COUNT 0 /CUMM (0.0-0.2); ABSOLUTE EOSINOPHIL COUNT 0 /CUMM (0.0-0.7); ABSOLUTE GRANULOCYTE CT 9.4 /CUMM (1.4-6.5); ABSOLUTE LYMPH COUNT 1.4 /CUMM (1.2-3.4); ABSOLUTE MONOCYTE COUNT 0.8 /CUMM (0.10-0.60); BASOPHIL % 0.2 % (0.0-2.0); EOSINOPHIL % 0.1 % (0-5); GRANULOCYTE % 80.5 % (42.2-75.2); HEMATOCRIT 36.3 % (37-47); MEAN CORPUSCULAR HGB 30.7 PG (27.0-31.0); MEAN CORPUSCULAR HGB CONC 34.4 G/DL (33.0-37.0); MEAN CORPUSCULAR VOLUME 89.3 FL (81.0-99.0); MEAN PLATELET VOLUME 9.1 FL (7.4-10.4); PLATELET COUNT 270 /CUMM (130-400); RBC DISTRIBUTION WIDTH 12.9 % (11.5-14.5); RED BLOOD CELL CT 4.06 /CUMM (4.20-5.40)
[2016-10-01 08:25] VITALS: BP 126/80
[2016-10-01 08:29] LABS: WHITE BLOOD CELL COUNT 11.6 /CUMM (4.8-10.8)
--- NOTE | 2016-10-01 11:49 | PN- Pulmonary ---
DESHAWN CORDON,[facility] 10/01/16 1149: Subjective HPI/Critical Care Issues: Follow-up for: COPD exacerbation Patient was seen and examined today, she is resting comfortably on her bed with nasal cannula 2 L oxygen and saturation 93%. She started to complain of nonproductive cough yesterday, denied fever, chills, chest pain or tightness, nasal congestion, headache. Patient reported chest pain when she first started to complain of shortness of breath 5 days ago. She is on nocturnal 2 L oxygen, for the past few days she's been using oxygen 3 and then 2.5 L during the day for comfort as she noticed shortness of breath during the day and the oxygen desaturation. Patient denied terminal pain, urinary symptoms dysuria or hematuria or increased frequency. Objective Current Medications: Current Medications Sig/Zakia Start time Last Medication Dose Route Stop Time Status Admin Acetaminophen 650 MG Q6P PRN 09/30 1745 AC PO Albuterol Sulfate 3 ML EVERY 4 HRS/AWAKE 10/01 1200 AC 10/01 INH 1222 Amitriptyline HCl 25 MG QPM 09/30 2200 AC 09/30 PO 2202 Azithromycin 250 MG DAILY 10/01 1000 AC 10/01 PO 0918 Azithromycin 500 MG DAILY 09/30 1743 DC Dextrose/Water 250 ML IV Azithromycin 500 MG ONCE ONE 09/30 1445 DC 09/30 Dextrose/Water 250 ML IV 09/30 1544 1524 Budesonide/ 2 PUF BID 09/30 2200 AC 10/01 Formoterol Fumarate INH 0914 Cholecalciferol 1,000 IU DAILY 10/01 1000 AC 10/01 PO 0909 Citalopram 40 MG QPM 09/30 2200 AC 09/30 Hydrobromide PO 220 Clonazepam 0.5 MG DAILY NEEDED 09/30 1745 AC PO 10/07 1744 Cyanocobalamin 1,000 MCG DAILY 10/01 1000 AC 10/01 PO 0909 Enoxaparin Sodium 40 MG DAILY 10/01 1000 AC 10/01 SC 0913 Fish Oil 1,050 MG DAILY 10/01 1000 AC 10/01 PO 0910 Fish Oil 1,200 MG QPM 09/30 2200 CAN PO Insulin Aspart 0 TIDAC 10/01 0800 AC 10/01 SC 1251 Melatonin 3 MG AT BEDTIME 10/01 220 DC PO Melatonin 3 MG AT BEDTIME 09/30 1945 AC 09/30 PO 2202 Methylprednisolone 40 MG Q8 10/01 0600 AC 10/01 IV 0542 Omeprazole 40 MG DAILY AC 10/01 0700 AC 10/01 PO 0542 Tiotropium [place] 1 PUF DAILY 10/01 1000 AC 10/01 INH 0914 Vital Signs & I&O Last 24 Hrs of Vitals and I&O: Vital Signs Date Time Temp Pulse Resp B/P Pulse O2 O2 Flow FiO2 Ox Delivery Rate 10/01 0825 97.5 84 20 126/80 95 Nasal 2.0L Cannula 10/01 0003 97.8 89 18 110/72 95 Nasal 2.0L Cannula 10/01 0000 Nasal 2.5L Cannula 09/30 1810 98.4 98 20 111/71 93 Nasal 2.0L Cannula Intake & Output 10/01 1600 10/01 0800 10/01 0000 Intake Total 260 480 Output Total Balance 260 480 Intake, IV 20 Intake, Oral 240 480 Number 1 Bowel Movements Patient 74.843 kg Weight Exam General Appearance: well developed/nourished, no apparent distress, alert, awake Head: atraumatic, normal appearance Ears, Nose, Throat: normal ENT inspection Respiratory: normal breath sounds, chest non-tender, no respiratory distress, lungs clear Cardiovascular: regular rate/rhythm Abdomen: normal bowel sounds, soft, non-tender Back: normal inspection Extremities: normal inspection, normal capillary refill, normal range of motion, no edema, No calf tenderness Impression/Plan Impression/Plan Impression/Plan: Ms. Mendoza is 66 year old female with past medical history significant for COPD on nocturnal 2 L oxygen, fibromyalgia, osteoarthritis and type 2 diabetes mellitus who presented on 09/30/16 with chief complaint of shortness of breath and oxygen desaturation for 5 days. CXR 1. Pulmonary emphysema. 2. No evidence of pneumonia or other acute pulmonary process compared to 2014. Bilateral venous Doppler Normal triplex scan without evidence of deep venous thrombosis involving the bilateral lower extremities. Problem list: 1. Acute exacerbation of COPD. 2. Hypoxia related to acute exacerbation of COPD. 3. History of diabetes. 4. Nocturnal hypoxemia. Recommendations: * Solu-Medrol 40 mg IV every 8 hours, switch to every 12 tomorrow * Azithromycin 250 mg orally daily for 5 daysn Day#2 * Attempt to wean off the oxygen, if the patient continues to desaturate consider CTA * Patient saturating well on 2 L oxygen, rest of vital signs are stable, afaibrile, no tachycardia or hypotension, new onset of leukocytosis 11.6 mostly related to steroids * Patient has no risk factors for PE, no recent surgery, hospitalization, long trip. WELLS score zero * Bilateral venous Doppler scan negative for DVT * Continue TRC * DVT prophylaxis constance RIVERA MD,Kathryn NOE 10/01/16 1359: Impression/Plan Impression/Plan Recommendations: Addendum: I have personally seen and examined the patient and agree with the resident's assessment and plan as above. We will continue her on all of her current therapy including IV steroids or azithromycin and nebs/TRC. If the patient continues to improve, we will consider discharge to home tomorrow.
--- NOTE | 2016-10-01 15:57 | PN- Att Addend ---
Attending MD Review Statement Attending Statement Attending MD Statement: examined this patient, discuss w/resident/PA/SR. LOGISTICS ANALYST, agreed w/resident/PA/SR. LOGISTICS ANALYST, reviewed EMR data (avail), discussed w/nursing Attending Assessment/Plan: Laboratory Tests 10/01/16 0658: Anion Gap 10, Estimated GFR > 60, BUN/Creatinine Ratio 24.4, CBC w Diff NO MAN DIFF REQ, RBC 4.06 L, MCV 89.3, MCH 30.7, RDW 12.9, MPV 9.1, Gran % 80.5 H, Lymphocytes % 12.0 L, Monocytes % 7.2, Eosinophils % 0.1, Basophils % 0.2, Absolute Granulocytes 9.4 H, Absolute Lymphocytes 1.4, Absolute Monocytes 0.8 H, Absolute Eosinophils 0, Absolute Basophils 0, PUBS MCHC 34.4 Vital Signs Date Time Temp Pulse Resp B/P Pulse O2 O2 Flow FiO2 Ox Delivery Rate 10/01 1549 Nasal 2.0L Cannula 10/01 0825 97.5 84 20 126/80 95 Nasal 2.0L Cannula 10/01 0003 97.8 89 18 110/72 95 Nasal 2.0L Cannula 10/01 0000 Nasal 2.5L Cannula 09/30 1810 98.4 98 20 111/71 93 Nasal 2.0L Cannula 66-year-old female with past medical history of COPD on nocturnal oxygen at 2 L at home who presented with chief complaint of coughing. Patient over the last few days has been using oxygen 24 hours a day at 3 L due to her subjective feeling of shortness of breath and decreased oxygen saturation on pulse oximetry at home. Patient denies any fevers or chills and any sick contacts. Patient in ER was found to have oral to saturations of 88% on room air and also worsening of her O2 sats was seen with ambulation. Patient is being admitted for COPD exacerbation. On exam she was found to have rhonchi bilateral lung parikh. Assessment and plan- acute COPD exacerbation with hypoxic respiratory failure. Patient was given IV steroids in the ER and chest x-ray done was negative for any infiltrates. We will admit her to medicine. We'll continue her on steroids and we'll also give her Zithromax . cont on iv steroids and if doing better will switch to po steroids tomorrow. d/w pt and pulmonology the care plan.
[2016-10-01 15:58] VITALS: BP 110/60
[2016-10-01 23:40] VITALS: BP 90/50
--- NOTE | 2016-10-02 07:02 | PN- Housestaff ---
See Addendum Subjective Follow-up For: COPD exacerbation Subjective: Patient is comfortably sittng in bed, appears in no distress, does not reports SOB. No pain/cramping on the left leg. Review of Systems Constitutional: Denies: chills, fever. EENTM: Reports: no symptoms. Cardiovascular: Denies: chest pain, palpitations. Respiratory: Reports: cough (improved compared to yesterday). Denies: short of breath, sputum production. Gastrointestinal: Denies: abdominal pain, changes in stool. Genitourinary: Reports: no symptoms. Musculoskeletal: Reports: no symptoms. Objective Last 24 Hrs of Vital Signs/I&O Vital Signs Date Time Temp Pulse Resp B/P Pulse O2 O2 Flow FiO2 Ox Delivery Rate 10/02 0936 93 Room Air 10/02 0852 97.4 73 18 100/52 97 Nasal 2.0L Cannula 10/02 0800 96 Nasal 1.0L Cannula 10/02 0000 96 Nasal 1.0L Cannula 10/01 2340 98.6 80 20 90/50 94 Nasal 2.0L Cannula 10/01 2046 94 Nasal 2.0L Cannula 10/01 1702 94 Nasal 2.0L Cannula 10/01 1558 98.5 84 19 110/60 96 Nasal 2.0L Cannula 10/01 1549 Nasal 2.0L Cannula Intake & Output 10/02 1600 10/02 0800 10/02 0000 Intake Total 240 300 Output Total Balance 240 300 Intake, Oral 240 300 Physical Exam General Appearance: Alert, Oriented X3, Cooperative, No Acute Distress Skin: No Rashes, No Breakdown, No Significant Lesion HEENT: Atraumatic Neck: Supple Cardiovascular: Regular Rate, Normal S1, Normal S2 Lungs: Normal Air Movement Abdomen: Normal Bowel Sounds, Soft, No Tenderness Neurological: Normal Speech, Strength at 5/5 X4 Ext, Normal Tone, Sensation Intact Extremities: No Cyanosis, No Edema, Normal Pulses Vascular: Normal Pulses, Pulses Symmetrical Assessment/Plan Assessment: 66-year-old lady with past medical history of COPD on oxygen at night, fibromyalgia, diabetic type II came with chief complaint of desaturation for about 5 days and her O2 saturation was around 85% on room air and she also complained of shortness of breath. Patient reports having minimal cough and wheezing today. Patient denies any fever, sick contacts, chills, nausea, vomiting, abdominal pain. Patient does report of mild left calf pain. She called Dr. Davila and was advised to come to the ED. She desaturated to 87% on ambulation on room air. Vital signs are noted above Physical exam is notable for bilateral upper mild expiratory wheezing CBC, troponin, BEP were unremarkable EKG NSR HR 81, QTC 455. CXR 1. Pulmonary emphysema. 2. No evidence of pneumonia or other acute pulmonary process compared to 07/05/2015. Assessment and plan COPD exacerbation symptoms much improved, no wheezing heard in the exam, no rhonchi * Keep O2 saturation over 92% * continue TRC nebs * stopped IV solumedrol, started on prednisone taper * PO azithromycin 250 mg daily for 5 days (day 3 today) * F/u pulmonary recommendations Left leg pain - resolved cramps are resolved, no swelling noted. ruled out DVT with doppler ultrasound Hyperlipidemia, anxiety, ,depression, GERD * Continue home medications Diabetes * Metformin, sliding scale insulin, fingersticks, diabetic diet DVT Prophylaxis is mechanical and Lovenox, full code, Tylenol for pain, diabetic diet Problem List: 1. COPD exacerbation Pain Ratin Pain Location: none Pain Goal: Pain 4 or less Pain Plan: mild pain pathway Tomorrow's Labs & Rationales: patient is discharged
[2016-10-02 07:47] LABS: ABSOLUTE BASOPHIL COUNT 0 /CUMM (0.0-0.2); ABSOLUTE EOSINOPHIL COUNT 0 /CUMM (0.0-0.7); ABSOLUTE GRANULOCYTE CT 11.6 /CUMM (1.4-6.5); ABSOLUTE LYMPH COUNT 1.6 /CUMM (1.2-3.4); ABSOLUTE MONOCYTE COUNT 0.9 /CUMM (0.10-0.60); BASOPHIL % 0.2 % (0.0-2.0); EOSINOPHIL % 0.1 % (0-5); GRANULOCYTE % 82.4 % (42.2-75.2); HEMATOCRIT 36.5 % (37-47); MEAN CORPUSCULAR HGB 30.1 PG (27.0-31.0); MEAN CORPUSCULAR HGB CONC 33.6 G/DL (33.0-37.0); MEAN CORPUSCULAR VOLUME 89.7 FL (81.0-99.0); MEAN PLATELET VOLUME 8.9 FL (7.4-10.4); PLATELET COUNT 298 /CUMM (130-400); RBC DISTRIBUTION WIDTH 13.3 % (11.5-14.5); RED BLOOD CELL CT 4.07 /CUMM (4.20-5.40); WHITE BLOOD CELL COUNT 14.1 /CUMM (4.8-10.8)
--- NOTE | 2016-10-02 08:43 | PN- Pulmonary ---
Subjective HPI/Critical Care Issues: Follow-up for: COPD exacerbation Patient was seen and examined this morning, oxygen was titrated from 2-1 L with good saturation above 92%. Patient denied any cough, fever, chills, chest pain, palpitation. Vital signs are stable, no overnight events reported by the patient or the nurse. Objective Current Medications: Current Medications Sig/Zakia Start time Last Medication Dose Route Stop Time Status Admin Acetaminophen 650 MG Q6P PRN 09/30 1745 AC PO Albuterol Sulfate 3 ML EVERY 4 HRS/AWAKE 10/01 1200 AC 10/02 INH 0932 Amitriptyline HCl 25 MG QPM 09/30 2200 AC 10/01 PO 2114 Azithromycin 250 MG DAILY 10/01 1000 AC 10/02 PO 0848 Budesonide/ 2 PUF BID 09/30 2200 AC 10/02 Formoterol Fumarate INH 0846 Cholecalciferol 1,000 IU DAILY 10/01 1000 AC 10/02 PO 0847 Citalopram 40 MG QPM 09/30 2200 AC 10/01 Hydrobromide PO 211 Clonazepam 0.5 MG DAILY NEEDED 09/30 1745 AC PO 10/07 1744 Cyanocobalamin 1,000 MCG DAILY 10/01 1000 AC 10/02 PO 0847 Enoxaparin Sodium 40 MG DAILY 10/01 1000 AC 10/02 SC 0846 Fish Oil 1,050 MG DAILY 10/01 1000 AC 10/02 PO 0847 Insulin Aspart 0 TIDAC 10/01 0800 AC 10/02 SC 0846 Melatonin 3 MG AT BEDTIME 09/30 1945 AC 10/01 PO 2114 Methylprednisolone 40 MG Q8 10/01 0600 AC 10/02 IV 0611 Omeprazole 40 MG DAILY AC 10/01 0700 AC 10/02 PO 0611 Polyethylene Glycol 17 GM AT BEDTIME 10/01 2200 AC 10/02 PO 0611 Tiotropium [place] 1 PUF DAILY 10/01 1000 AC 10/02 INH 0846 Vital Signs & I&O Last 24 Hrs of Vitals and I&O: Vital Signs Date Time Temp Pulse Resp B/P Pulse O2 O2 Flow FiO2 Ox Delivery Rate 10/02 0936 93 Room Air 10/02 0852 97.4 73 18 100/52 97 Nasal 2.0L Cannula 10/02 0800 96 Nasal 1.0L Cannula 10/02 0000 96 Nasal 1.0L Cannula 10/01 2340 98.6 80 20 90/50 94 Nasal 2.0L Cannula 10/01 2046 94 Nasal 2.0L Cannula 10/01 1702 94 Nasal 2.0L Cannula 10/01 1558 98.5 84 19 110/60 96 Nasal 2.0L Cannula 10/01 1549 Nasal 2.0L Cannula Intake & Output 10/02 1600 10/02 0800 10/02 0000 Intake Total 240 300 Output Total Balance 240 300 Intake, Oral 240 300 Exam General Appearance: well developed/nourished, no apparent distress, alert, awake Head: atraumatic, normal appearance Ears, Nose, Throat: normal ENT inspection Neck: normal inspection, supple, full range of motion Respiratory: normal breath sounds, chest non-tender, no respiratory distress Cardiovascular: regular rate/rhythm Abdomen: normal bowel sounds, soft, non-tender Extremities: normal inspection, normal capillary refill, normal range of motion, no edema Impression/Plan Impression/Plan Impression/Plan: Ms. Mendoza is 66 year old female with past medical history significant for COPD on nocturnal 2 L oxygen, fibromyalgia, osteoarthritis and type 2 diabetes mellitus who presented on 09/30/16 with chief complaint of shortness of breath and oxygen desaturation for 5 days. CXR 1. Pulmonary emphysema. 2. No evidence of pneumonia or other acute pulmonary process compared to 2014. Bilateral venous Doppler Normal triplex scan without evidence of deep venous thrombosis involving the bilateral lower extremities. Problem list: 1. Acute exacerbation of COPD. 2. Hypoxia related to acute exacerbation of COPD. 3. History of diabetes. 4. Nocturnal hypoxemia. Recommendations: * Patient can be switched to prednisone 40daily x2, 302, 202, 102 and then stop * Continue TRC and nebulizers * Azithromycin 250 mg orally daily for 5 daysn Day#3 * Attempt to wean off the oxygen, keep oxygen saturation above 92% * Patient is stable for discharge today * DVT prophylaxis lovenox
[2016-10-02 08:52] VITALS: BP 100/52
[2016-10-02] MEDS ORDERED: AZITHROMYCIN250 M1 PO (10:49)
--- NOTE | 2016-10-02 10:55 | Patient Discharge Instructions ---
Discharge Instructions General Discharge Information You were seen/treated for: COPD exacerbation Special Instructions: Please: follow up with Dr. Davila, pulmonary within 1-2 weeks of discharge follow up with your PCP within 1-2 weeks of discharge Diet Recommended Diet: Diabetic Activity Activity Self Limited: Yes Acute Coronary Syndrome Inclusion Criteria At DC or during hospital stay patient has or had the following: ACS DIAGNOSIS No Discharge Core Measures Meds if any: Prescribed or Continued at Discharge Meds if any: NOT Prescribed or Continued at Discharge Congestive Heart Failure Inclusion Criteria At DC or during hospital stay patient has or had the following: CHF DIAGNOSIS No Discharge Core Measures Meds if any: Prescribed or Continued at Discharge Meds if any: NOT Prescribed or Continued at Discharge Cerebrovascular accident Inclusion Criteria At DC or during hospital stay patient has or had the following: CVA/TIA Diagnosis No Discharge Core Measures Meds if any: Prescribed or Continued at Discharge Meds if any: NOT Prescribed or Continued at Discharge Venous thromboembolism Inclusion Criteria VTE Diagnosis No VTE Type NONE VTE Confirmed by (Test) NONE Discharge Core Measures - Per Current guidelines, there needs to be overlap - treatment for the first 5 days of Warfarin therapy. - If discharged on Warfarin prior to 5 days of - overlap therapy, the patient will need to be - assessed for post discharge needs including - *Post discharge parental anticoagulation - *Warfarin and/or parental anticoagulation education - *Follow up date to check INR post discharge At least 5 days overlap therapy as Inpatient No Meds if any: Prescribed or Continued at Discharge Note: Overlap Therapy is Warfarin and Anticoagulant Meds if any: NOT Prescribed or Continued at Discharge
[2016-10-02] MEDS ORDERED: PREDNISONE10 M2 OTHER ×2 (11:07→11:42)
[2016-10-02] MEDS ORDERED: ALBUTEROL1.25 MG/1 INH/SOL (12:18)
--- NOTE | 2016-10-02 14:35 | Discharge Summary ---
Visit Information Visit Dates Admission Date: 09/30/16 Discharge Date: 10/02/16 Hospital Course Course Attending Physician: TRAVIS CORDON,JAYNE Ordonez Primary Care Physician: ZACH TENORIO MD Hospital Course: Ms Mendoza is a 66-year-old lady with past medical history of COPD on oxygen at night, fibromyalgia, diabetic type II who came with chief complaint of desaturation for about 5 days. Her O2 saturation was around 85% on room air and she also complained of shortness of breath, coughing and wheezing. She called Dr. Davila and was advised to come to the ED. She was admitted to the [facility] floor for COPD exacerbation and the following were addressed during her stay: COPD exacerbation Patient was noted to have bilateral end expiratory wheezing. CXR showed pulmonary emphysema and no evidence of pneumonia or other acute pulmonary process. She was kept on O2 per NC and received nebulizer treatment, as well as IV solumedrol and azithromycin. Pulmonary Dr. Davila visited the patient and gave us recommendations. She clinically improved significantly on the second day , was switched to PO azithromycin to complete 5 days of treatment. Also steroid was switched to prednisone on the third day and patient was discharged on the taper: 40 mg x2 days, 30 mg x2days, 20 mg x2days, 10 mg x2 days and then stop. Patient was saturating >92% without oxygen at rest and 90% on ambulation, she has oxygen at home and will use O2 as needed during activities and continuously at bed time. She will follow up with Dr. Davila and her PCP within 1-2 weeks of discharge. Left leg pain Patient reported left lower extremity pain and cramping on admission which resolved on its own on the next day, we did doppler US and ruled out DVT. Hx of Hyperlipidemia, anxiety, depression, GERD Continued home medications Diabetes Patient received insulin novolog sliding scale during stay. Restarted her on metformin at discharge. Allergies: Coded Allergies: ampicillin (UNKNOWN 11/28/15) atorvastatin (UNKNOWN 11/28/15) ciprofloxacin (From CIPRO) (UNKNOWN 11/28/15) dicyclomine (UNKNOWN 11/28/15) estradiol (UNKNOWN 11/28/15) simvastatin (UNKNOWN 11/28/15) sulfamethoxazole (From SEPTRA) (DIARRHEA 11/28/15) trimethoprim (From SEPTRA) (DIARRHEA 11/28/15) Significant Procedures: SERVICE DATE: 09/30/16 EXAM TYPE: RAD - XRY-CHEST XRAY, PA AND LATERAL EXAMINATION: XR CHEST CLINICAL INFORMATION: Cough and shortness of breath COMPARISON: CXR from 07/05/[address] from 04/04/2016 TECHNIQUE: 2 views of the chest were obtained. FINDINGS: There is pulmonary emphysema associated with enhanced, but stable reticular markings in both lungs. No acute pulmonary consolidation, interstitial edema, hilar lymphadenopathy or pleural effusion. There is surgical change from wedge resection from the medial right apex. Cardiac silhouette remains normal in size. There is atherosclerotic calcification of the aortic arch. No acute findings within the mildly degenerated thoracic spine. IMPRESSION: 1. Pulmonary emphysema. 2. No evidence of pneumonia or other acute pulmonary process compared to 07/05/2015. DICTATED BY: TODD PALAFOX MD DATE/TIME DICTATED:09/30/161316 GEOSPATIAL SPECIALIST:AVERY DATE/TIME TRANSCRIBED:09/30/161316 SERVICE DATE: 09/30/16- EXAM TYPE: US - US-EXT BILAT VENOUS DOPPLER EXAMINATION: US TRIPLEX LOWER EXTREMITY, BILATERAL CLINICAL INFORMATION: Cramping. COMPARISON: None TECHNIQUE: Color-flow triplex imaging with spectral analysis and compression Doppler were performed on the bilateral lower extremities. FINDINGS: Respiratory variation, normal compression and augmented flow are noted throughout the bilateral lower extremities. The visualized common femoral vein, superficial femoral vein, profunda femoral vein, popliteal vein and midcalf peroneal and posterior tibial venous segments show no evidence of deep venous thrombosis. There is no Haynes's cyst. IMPRESSION: Normal triplex scan without evidence of deep venous thrombosis involving the bilateral lower extremities. DICTATED BY: ALEXANDREA LANGE MD DATE/TIME DICTATED:09/30/162228 GEOSPATIAL SPECIALIST:GALARZA DATE/TIME TRANSCRIBED:09/30/162228 Pertinent Lab Results: 09/30/16 1245: Anion Gap 12, Estimated GFR > 60, BUN/Creatinine Ratio 21.1, Glucose 94, Calcium 9.8, Magnesium 2.2, Total Bilirubin 0.9, AST 23, ALT 34, Alkaline Phosphatase 53 , Troponin I < 0.01, Total Protein 6.9, Albumin 4.2, Globulin 2.7, Albumin/ Globulin Ratio 1.6, PT 10.6, INR 1.01, APTT 29, CBC w Diff NO MAN DIFF REQ, RBC 4.37, MCV 88.8, MCH 30.0, RDW 13.1, MPV 8.6, Gran % 57.4, Lymphocytes % 28.5, Monocytes % 9.6 H, Eosinophils % 4.2, Basophils % 0.3, Absolute Granulocytes 4.2, Absolute Lymphocytes 2.1, Absolute Monocytes 0.7 H, Absolute Eosinophils 0.3, Absolute Basophils 0, PUBS MCHC 33.7 Disposition Summary Disposition Principal Diagnosis: COPD exacerbation Additional Diagnosis: History of DM, HTN, HLD, fibromyalgia, anxiety, depression, GERD Discharge Disposition: home or self care Discharge Instructions General Discharge Information Code Status: Full Code Patient's Diet: diabetic diet Patient's Activity: as tolerated Follow-Up Instructions/Appts: Please: follow up with Dr. Davila, pulmonary within 1-2 weeks of discharge follow up with your PCP within 1-2 weeks of discharge Medications at Discharge Discharge Medications: Continue taking these medications: Pantoprazole Sodium (Pantoprazole Sodium) 40 MG TABLET. 1 Tablet ORAL DAILY Qty = 90 Comments: PRILOSEC GIVEN WHILE HOSPITALIZED 10/02/16 AT 7:00 AM Fluticasone/Salmeterol (Advair 250-50 Diskus) 250 MCG-50 MCG/DOSE BLST.W.DEV 1 Puff Inhale through mouth TWICE DAILY Qty = 180 Comments: NOT GIVEN WHILE HOSPITALIZED, SYMBICORT GIVEN 10/02/16 AT 10:00 AM Citalopram Hydrobromide (Citalopram HBr) 40 MG TABLET 1 Tablet ORAL DAILY Qty = 90 Comments: LAST DOSE GIVEN 10/01/16 AT 10:00 PM Metformin HCl (Metformin HCl ER) 500 MG TAB.ER.24H 1 Tablet ORAL SEE INSTRUCTIONS Qty = 270 Instructions: 1 TAB MORNING 2 TAB EVENING Comments: NOT GIVEN WHILE HOSITALIZED Rosuvastatin Calcium (Crestor) 10 MG TABLET 1 Tablet ORAL DAILY Qty = 90 Comments: NOT GIVEN WHILE HOSPITALIZED Tiotropium [place] (Spiriva) 18 MCG CAP.W.DEV 1 Capsule Inhale through mouth DAILY Qty = 90 Comments: LAST DOSE GIVEN 10/02/16 AT 10:00 AM Amitriptyline HCl (Amitriptyline HCl) 25 MG TABLET 1 Tablet ORAL Every night Qty = 90 Comments: LAST DOSE GIVEN 10/01/16 AT 10:00 PM Albuterol Sulfate (Ventolin Hfa) 90 MCG HFA.AER.AD 2 Puff Inhale through mouth EVERY 4-6 HOURS NEEDED as needed for BREATHING PROBLEMS Qty = 54 Comments: NOT GIVEN WHILE HOSPITALIZED Fish Oil/Borage/Flax/Om3,6,9#1 ([place] 3-6-9 1,200 MG Softgel) 1,200 MG CAPSULE 1 Capsule ORAL DAILY Comments: LAST DOSE GIVEN 10/02/16 AT 10:00 AM Cyanocobalamin (Vitamin B-12) 1,000 MCG TABLET 1 Tablet ORAL DAILY Comments: LAST DOSE GIVEN 10/02/16 AT 10:00 AM Cholecalciferol (Vitamin D3) (Vitamin D) 2,000 UNIT TABLET 4,000 Unit ORAL DAILY Comments: LAST DOSE GIVEN 10/02/16 AT 10:00 AM Melatonin (Melatin) 3 MG TABLET 3 Milligram ORAL DAILY Comments: LAST DOSE GIVEN 10/01/16 AT 10:00 PM Clonazepam (Clonazepam) 0.5 MG TABLET 1 Tablet ORAL DAILY NEEDED Comments: NOT GIVEN WHILE HOSPITALIZED Start taking the following new medications: Prednisone (Prednisone) 10 MG TABLET 1 Tablet OTHER See Instructions Qty = 16 No Refills Instructions: Please: take 4 tabs on 10/03/16 then take 3 tabs on 10/04/16 and 10/05/16 then take 2 tabs on 10/06/16 and 10/07/16 then take 1 tab on 10/08/16 and 10/09/16 then stop. Comments: 40 MG GIVEN 10/02/16 AT 1:00 PM Albuterol Sulfate (Albuterol Sulfate) 1.25 MG/3 ML VIAL.NEB 1 Vial Inhale Solution EVERY 4-6 HOURS as needed for COPD Qty = 150 No Refills Azithromycin (Azithromycin) 250 MG TABLET 1 Tablet ORAL DAILY Qty = 2 No Refills Instructions: PLEASE TAKE 1 TAB ON 10/03/16 AND ONE TAB ON 10/05/16. Comments: LAST DOSE GIVEN 10/02/16 AT 10:00 AM Copies To: MIGUEL CORDON,Kathryn LIU; COBY CORDON,ZACH Brooke Attending MD Review Statement Documenting Attending: TRAVIS CORDON,JAYNE Ordonez Other Findings: agree with the above discharge plan.
== END 2016-10-02 14:00 | DRG 190 ==
LOC: ENRESERVDT → ENRESERVTM → ERH 11:51 → ERHI 16:21 → 2NB 16:21 → ENPENDDIS 16:21 → 2NB 18:03
PROVIDERS: Internal Medicine; Ophthalmology; Physician Assistant; ADMIT Internal Medicine
DX: J44.1 Chronic obstructive pulmonary disease with (acute) exacerbation (principal); J96.21 Acute and chronic respiratory failure with hypoxia; Z99.81 Dependence on supplemental oxygen; E11.9 Type 2 diabetes mellitus without complications; M79.7 Fibromyalgia; M19.90 Unspecified osteoarthritis, unspecified site; Z87.891 Personal history of nicotine dependence; Z79.84 Long term (current) use of oral hypoglycemic drugs; E78.5 Hyperlipidemia, unspecified
CPT/HCPCS: 2NBSP; 36415; 82436; 87804; 87804-59; 93005; 93010; 93970; 96374; 96375; J0456; J1650; J2920; J2930; J3490; J7060

== ENCOUNTER 2017-08-25 12:56 | Inpatient (IN) | payer OTHER ==
[~2017-08-25] VITALS: Ht 160 cm; Wt 77.1 kg
[~2017-08-25 12:56] MED LIST: ADVAIR 250-501 EACH INH; ALBUTEROL1.25 MG/1 INH/SOL; AMITRIPTYLINE H25 M2 PO; AZITHROMYCIN250 M1 PO; CITALOPRAM HBR40 MG PO; CLONAZEPAM0.5 M2 PO; CRESTOR10 M1 PO; MELATIN3 MG PO; METFORMIN HCL500 M4 PO; OMEGA 3-6-9 11200 MG PO; PANTOPRAZOLE SO40 M1 PO; PREDNISONE10 M2 OTHER; SPIRIVA18 MCG INH; VENTOLIN HFA18 GM INH; VITAMIN B-121000 MC3 PO; VITAMIN D2000 UNI1 PO
[2017-08-25 13:50] LABS: ABSOLUTE BASOPHIL COUNT 0 /CUMM (0.0-0.2); ABSOLUTE EOSINOPHIL COUNT 0 /CUMM (0.0-0.7); ABSOLUTE GRANULOCYTE CT 6.4 /CUMM (1.4-6.5); ABSOLUTE LYMPH COUNT 1.2 /CUMM (1.2-3.4); ABSOLUTE MONOCYTE COUNT 0.4 /CUMM (0.10-0.60); BASOPHIL % 0.1 % (0.0-2.0); EOSINOPHIL % 0.6 % (0-5); GRANULOCYTE % 78.9 % (42.2-75.2); HEMATOCRIT 35.1 % (37-47); MEAN CORPUSCULAR HGB CONC 34.1 G/DL (33.0-37.0); MEAN CORPUSCULAR VOLUME 85.1 FL (81.0-99.0); PLATELET COUNT 272 /CUMM (130-400); RBC DISTRIBUTION WIDTH 14.5 % (11.5-14.5); RED BLOOD CELL CT 4.13 /CUMM (4.20-5.40); WHITE BLOOD CELL COUNT 8.1 /CUMM (4.8-10.8)
--- NOTE | 2017-08-25 13:52 | RADIOLOGY REPORT ---
EXAMINATION: XR CHEST CLINICAL INFORMATION: Shortness of breath COMPARISON: Screening chest CT from 03/03/2017. Chest x-ray from 10/15/2016 TECHNIQUE: 2 views of the chest were obtained. FINDINGS: There are postsurgical changes along the right lateral mediastinal contour, stable. There is underlying emphysema with increased upper lobe lucency. In comparison to the prior studies there is perceived faint increased prominence of the interstitial markings in the mid to lower lungs. This may reflect an interstitial pulmonary edema versus an atypical infectious/inflammatory process. No pleural effusion or pneumothorax is visualized. The cardiomediastinal silhouette is within normal limits apart from some tortuosity of the thoracic aorta. The spine demonstrate some minor degenerative changes. No acute osseous abnormalities are visualized. IMPRESSION: Slight increase in the interstitial markings in the mid to lower lungs bilaterally superimposed on underlying emphysema and right upper lobe postsurgical change. This may reflect an interstitial pulmonary edema or an atypical infectious/inflammatory process.
[2017-08-25 13:57] LABS: PT 10.4 SEC (9.4-12.5)
--- NOTE | 2017-08-25 17:06 | ED DYSPNEA/ASTHMA COMPLAINT ---
History of Present Illness General Chief Complaint: Dyspnea (COPD, CHF, Other) Stated Complaint: SIB DR ESPINOSA FOR LOW O2 SAT/ SOB Source: patient, family, old records Exam Limitations: no limitations Vital Signs & Intake/Output Vital Signs & Intake/Output Vital Signs Date Time Temp Pulse Resp B/P B/P Pulse O2 O2 Flow FiO2 Mean Ox Delivery Rate 08/25 1644 93 Nasal 3.0L Cannula 08/25 1618 97.8 83 18 122/64 94 Nasal 3.0L Cannula 08/25 1613 95 Nasal 2.5L Cannula 08/25 1308 97.8 90 18 108/69 94 Nasal 2.0L Cannula Allergies Coded Allergies: ampicillin (UNKNOWN 11/28/15) atorvastatin (UNKNOWN 11/28/15) ciprofloxacin (From CIPRO) (UNKNOWN 11/28/15) dicyclomine (UNKNOWN 11/28/15) estradiol (UNKNOWN 11/28/15) simvastatin (UNKNOWN 11/28/15) sulfamethoxazole (From SEPTRA) (DIARRHEA 11/28/15) trimethoprim (From SEPTRA) (DIARRHEA 11/28/15) Reconcile Medications Albuterol Sulfate (Ventolin Hfa) 90 MCG HFA.AER.AD 2 PUF INH Q4-6 PRN PRN BREATHING PROBLEMS (Reported) Albuterol Sulfate 1.25 MG/3 ML VIAL.NEB 1 Vial INH/MILLER Q4-6 PRN COPD Amitriptyline HCl 25 MG TABLET 1 TAB PO QPM FIBRO (Reported) Azithromycin 250 MG TABLET 1 TAB PO DAILY COPD exacerbation PLEASE TAKE 1 TAB ON 10/03/16 AND ONE TAB ON 10/05/16. Cholecalciferol (Vitamin D3) (Vitamin D) 2,000 UNIT TABLET 4,000 UNIT PO DAILY SUPP (Reported) Citalopram Hydrobromide (Citalopram HBr) 40 MG TABLET 1 TAB PO DAILY MENTAL HEALTH (Reported) Clonazepam 0.5 MG TABLET 1 TAB PO DAILY NEEDED AXNITY (Reported) Cyanocobalamin (Vitamin B-12) 1,000 MCG TABLET 1 TAB PO DAILY SUPP (Reported) Fish Oil/Borage/Flax/Om3,6,9#1 ([place] 3-6-9 1,200 MG Softgel) 1,200 MG CAPSULE 1 CAP PO DAILY SUUP (Reported) Fluticasone/Salmeterol (Advair 250-50 Diskus) 250 MCG-50 MCG/DOSE BLST.W.DEV 1 PUF INH BID BREATHING PROBLEMS (Reported) Melatonin (Melatin) 3 MG TABLET 3 MG PO DAILY INSOMNIA (Reported) Metformin HCl (Metformin HCl ER) 500 MG TAB.ER.24H 1 TAB PO SEE ADMIN CRITERIA DIABETES (Reported) 1 TAB MORNING 2 TAB EVENING Pantoprazole Sodium 40 MG TABLET.DR 1 TAB PO DAILY GI (Reported) Prednisone 10 MG TABLET 1 TAB OTHER SI COPD exacerbation Please: take 4 tabs on 10/03/16 then take 3 tabs on 10/04/16 and 10/05/16 then take 2 tabs on 10/06/16 and 10/07/16 then take 1 tab on 10/08/16 and 10/09/16 then stop. Rosuvastatin Calcium (Crestor) 10 MG TABLET 1 TAB PO DAILY CHOLESTEROL ( Reported) Tiotropium [place] (Spiriva) 18 MCG CAP.W.DEV 1 CAP INH DAILY BREATHING PROBLEMS (Reported) Triage Note: 67 Y/O FEMALE C/O SOB X 2 MONTHS, "ENOUGH IS ENOUGH". PT WEARS OXYGEN AT BASELINE 2.5L AND STATES SHE HAS BEEN GOING TO THE CLINIC WITH NO RELIEF ON STEROIDS. PT REPORTS INTERMITTENT PAIN TO CHEST, "SHOULDERBLADES" AND UPPER BACK, 1/10 AT THIS TIME. REPORTS DRY NON PRODUCTIVE COUGH. REPORTS GOOD APPETITE/PO INTAKE. SPEAKING CLEARLY WITH NO DISTRESS NOTED. SAT 94% ON 2L. EKG AND BLOOD DRAW IN PROGRESS Triage Nurses Notes Reviewed? yes Onset: Abrupt Duration: week(s):, constant, continues in ED Timing: recent history Severity: moderate, severe Activities at Onset: none HPI: 67-year-old female comes into the emergency room with worsening shortness of breath is been going on for the past 2 months getting progressively worse. She has a history of COPD. She is normally on 2 L of oxygen at nighttime. She reports for the last 2 months she's had increased it to 2 L 24 hours. She denies any chest pain. Denies any vomiting. Shortness of breath is worse with exertion. (Jasvir Gold) Past History Travel History Traveled to [place] past 21 day No Medical History Any Pertinent Medical History? see below for history Neurological: NONE EENT: NONE Cardiovascular: NONE Respiratory: COPD, 02 PRN Gastrointestinal: irritable bowel syndrome Hepatic: NONE Renal: NONE Musculoskeletal: fibromyalgia, osteoarthritis Psychiatric: NONE Endocrine: diabetes Blood Disorders: NONE Cancer(s): NONE SYSTEM DEVELOPMENT MANAGER/Reproductive: NONE History of MRSA: No History of VRE: No History of CDIFF: No Influenza Vaccine: 06/01/16 Surgical History Surgical History: hysterectomy Psychosocial History Who do you live with Spouse Services at Home Oxygen What is your primary language Vincentian Tobacco Use: Quit >30 days ago Family History Family History, If Any: Relation not specified for: FH: diabetes mellitus FH: lung cancer Hx Contributory? No (Jasvir Gold) Review of Systems Review of Systems Constitutional: Reports: no symptoms. EENTM: Reports: no symptoms. Respiratory: Reports: see HPI. Cardiovascular: Reports: no symptoms. GI: Reports: no symptoms. Genitourinary: Reports: no symptoms. Musculoskeletal: Reports: no symptoms. Skin: Reports: no symptoms. Neurological/Psychological: Reports: no symptoms. Hematologic/Endocrine: Reports: no symptoms. Immunologic/Allergic: Reports: no symptoms. All Other Systems: Reviewed and Negative (Jasvir Gold) Physical Exam Physical Exam General Appearance: well developed/nourished, alert, awake, mild distress Head: atraumatic Eyes: Bilateral: normal appearance. Ears, Nose, Throat: normal pharynx, hearing grossly normal Neck: normal inspection Respiratory: no respiratory distress, lungs clear Cardiovascular: regular rate/rhythm Extremities: normal inspection Neurologic/Psych: awake, alert, oriented x 3, normal gait Skin: intact, normal color Core Measures ACS in differential dx? Yes CVA/TIA Diagnosis No Sepsis Present: No Sepsis Focused Exam Completed? No (Jasvir Gold) Progress Differential Diagnosis: asthma, AMI, bronchitis, CHF, COPD, pericarditis, pulmonary embolism, pneumonia, pneumothorax, unstable angina Plan of Care: Orders Procedure Date/time Status Consistent Carbohydrate 1 08/26 B Active ED Holding Orders 08/25 1738 Active Admit to inpatient 08/25 1738 Active Vital Signs 08/25 1738 Active Code Status 08/[address] CHEST WO IV CONTRAST 08/25 1716 Active Add-on Test (ER Only) 08/25 1555 Active D-DIMER 08/25 1314 Complete Telemetry/Desk Reporter 08/25 1301 Active TROPONIN LEVEL 08/25 1301 Complete PROTHROMBIN TIME 08/25 1301 Complete COMPREHENSIVE METABOLIC PANEL 08/25 1301 Complete CBC WITHOUT DIFFERENTIAL 08/25 1301 Complete B-TYPE NATRIURETIC PEP (BNP) 08/25 1301 Complete EKG 08/25 1257 Active Current Medications Sig/Zakia Start time Last Medication Dose Stop Time Status Admin Azithromycin 500 MG ONCE ONE 08/25 1729 UNVr (Zithromax) 08/25 1828 Sodium Chloride 250 ML (Normal Saline 0.9%) Ceftriaxone Sodium 1,000 MG ONCE ONE 08/25 1729 UNVr (Rocephin) 08/25 1730 Methylprednisolone 125 MG ONCE ONE 08/25 1729 UNVr (Solu Medrol) 08/25 1730 Laboratory Tests 08/25/17 1314: Anion Gap 15, Estimated GFR > 60, BUN/Creatinine Ratio 18.9, Glucose 181 H, Calcium 9.8, Total Bilirubin 0.7, AST 20, ALT 39, Alkaline Phosphatase 56, Troponin I < 0.01, Zlb-[id number] Pept 137 H, Total Protein 6.7, Albumin 4.2 , Globulin 2.5, Albumin/Globulin Ratio 1.7, PT 10.4, INR 0.99, D-Dimer High Sensitivty < 200, CBC w Diff NO MAN DIFF REQ, RBC 4.13 L, MCV 85.1, MCH 29.0, RDW 14.5, MPV 9.0, Gran % 78.9 H, Lymphocytes % 15.4 L, Monocytes % 5.0, Eosinophils % 0.6, Basophils % 0.1, Absolute Granulocytes 6.4, Absolute Lymphocytes 1.2, Absolute Monocytes 0.4, Absolute Eosinophils 0, Absolute Basophils 0, PUBS MCHC 34.1 Diagnostic Imaging: Viewed by Me: Radiology Read. Discussed w/RAD: Radiology Read. Radiology Impression: PATIENT: CRYSTAL HANEY PRESENT AGE: 67 PATIENT ACCOUNT NO: [id number] : 49 LOCATION: [facility] ORDERING PHYSICIAN: Ivy VALERA SERVICE DATE: 08/25/17 EXAM TYPE: RAD - XRY-CHEST XRAY, TWO VIEWS EXAMINATION: XR CHEST CLINICAL INFORMATION: Shortness of breath COMPARISON: Screening chest CT from 03/03/2017. Chest x-ray from 10/15 TECHNIQUE: 2 views of the chest were obtained. FINDINGS: There are postsurgical changes along the right lateral mediastinal contour, stable. There is underlying emphysema with increased upper lobe lucency. In comparison to the prior studies there is perceived faint increased prominence of the interstitial markings in the mid to lower lungs. This may reflect an interstitial pulmonary edema versus an atypical infectious/inflammatory process. No pleural effusion or pneumothorax is visualized. The cardiomediastinal silhouette is within normal limits apart from some tortuosity of the thoracic aorta. The spine demonstrate some minor degenerative changes. No acute osseous abnormalities are visualized. IMPRESSION: Slight increase in the interstitial markings in the mid to lower lungs bilaterally superimposed on underlying emphysema and right upper lobe postsurgical change. This may reflect an interstitial pulmonary edema or an atypical infectious/inflammatory process. DICTATED BY: Jodi Wilder MD DATE/ TIME DICTATED:08/25/171342 CASE LINER:AVERY DATE/TIME TRANSCRIBED: 08/25/171342 CONFIDENTIAL, DO NOT COPY WITHOUT APPROPRIATE AUTHORIZATION. < Electronically signed in Other Vendor System> SIGNED BY: Jodi Wilder MD 08/25/17 1352 Initial ED EKG: normal sinus rhythm, rate (85) (Jasvir Gold) Departure Departure Disposition: STILL A PATIENT Condition: Stable Clinical Impression Primary Impression: COPD exacerbation Secondary Impressions: Hypoxia Referrals: Josiah CORDON,Seferino Brooke (PCP/Family) Departure Forms: Customer Survey General Discharge Information Admission Note Spoke With: Evan Pearl MD Documentation of Exam: Documentation of any treatments & extenuating circumstances including Concerns Regarding Discharge (functional status, medication knowledge or non-compliance, living conditions, etc.) that warrant an admission rather than observation: Patient has failed outpatient treatment with oral steroids. Patient will require IV steroids. IV antibiotics. Pulmonary consultation. pT was profoundly short of breath on exertion here. Medically not safe for discharge. I (Jasvir Gold) PA/SALES DEVELOPMENT DIRECTOR Co-Sign Statement Statement: ED Attending supervision documentation- [X] I saw and evaluated the patient. I have also reviewed all the pertinent lab results and diagnostic results. I agree with the findings and the plan of care as documented in the PA's/SALES DEVELOPMENT DIRECTOR's documentation. [X] I have reviewed the ED Record and agree with the PA's/SALES DEVELOPMENT DIRECTOR's documentation. [] Additions or exceptions (if any) to the PAs/SALES DEVELOPMENT DIRECTOR's note and plan are summarized below: [] (Jonathan CORDON,Maureen) Critical Care Note Critical Care Note Critical Care Time: non-applicable (Jasvir Gold)
--- NOTE | 2017-08-25 17:58 | CT SCAN REPORT ---
EXAMINATION: CT CHEST WITHOUT CONTRAST CLINICAL INFORMATION: Shortness of breath COMPARISON: CT 03/03/2017 TECHNIQUE: Multidetector volumetric CT imaging of the chest was done. Axial MIP volume rendering provided. Sagittal and coronal reformatted images were obtained. DLP: 233 mGy-cm FINDINGS: PHARMACEUTICAL SALES SPECIALIST: Clear lungs LUNGS: Severe, predominantly upper lobe centrilobular emphysema is redemonstrated. The distribution is similar compared to the recent CT from 03/03/2017. No new consolidation. No pleural effusion. Airways appear patent to the subsegmental level. A left upper lobe spiculated pulmonary nodule measures 0.7 x 0.7 (image 160, series 5). This finding is stable dating to 06/09/2015. No new pulmonary nodules. MEDIASTINUM: The heart is normal in size. No pericardial effusion. No pathologically enlarged lymph nodes. PLEURA: There is no pleural effusion. No pleural mass or thickening. AXILLA: No lymphadenopathy. UPPER ABDOMEN: Unremarkable. OSSEOUS STRUCTURES: Unremarkable. IMPRESSION: 1. Severe emphysema, stable compared to the 03/03/[address] No superimposed acute changes. 2. Stable left upper lobe pulmonary nodule dating to 06/09/2015.
--- NOTE | 2017-08-25 18:21 | History & Physical ---
[facility] 08/25/17 1820: General Information and HPI MD Statement: I have seen and personally examined CRYSTAL MENDOZA and documented this H&P. The patient is a 67 year old F who presented with a patient stated chief complaint of [SOB]. Source of Information: patient, old records, W10 Exam Limitations: no limitations History of Present Illness: Ms. Mendoza is a pleasant 66 year old female with PMH COPD on home O2 initially at night BUT over the last 2 months she has been using it 24/. fibromyalgia, osteoarthritis and type 2 diabetes mellitus who presented to the [facility] with a c/o SOB. Patient saw her hand umbrella tipper during Elena time, at that time she was complaining of the increased SOB, she was advised to use O2 throughout the day, she is using 2.5 L 24/. She also got a referral for [facility] shot every Friday, last Friday she noticed that her shortness of breath is not improving even with a steroid shot, she spoke with her hand umbrella tipper who advised to use Mucinex twice a day, she tried that with no improvement and today she spoke to Dr. Davila who advised her to come to the emergency department for more evaluation. Patient reports feeling chest pressure related to shortness of breath and wheezing, she has a dry cough, she feels congested but no phlegm comings. She feels chills all the time, no fever or sweating reported. No chest pain, dizziness, headache, sick contact recent travel, and there is no change in urinary or bowel habits Allergies/Medications Allergies: Coded Allergies: ampicillin (UNKNOWN 11/28/15) atorvastatin (UNKNOWN 11/28/15) ciprofloxacin (From CIPRO) (UNKNOWN 11/28/15) dicyclomine (UNKNOWN 11/28/15) estradiol (UNKNOWN 11/28/15) simvastatin (UNKNOWN 11/28/15) sulfamethoxazole (From SEPTRA) (DIARRHEA 11/28/15) trimethoprim (From SEPTRA) (DIARRHEA 11/28/15) Home Med list Albuterol Sulfate (Ventolin Hfa) 90 MCG HFA.AER.AD 2 PUF INH Q4-6 PRN PRN BREATHING PROBLEMS (Reported) Albuterol Sulfate 1.25 MG/3 ML VIAL.NEB 1 Vial INH/MILLER Q4-6 PRN COPD Amitriptyline HCl 25 MG TABLET 1 TAB PO QPM FIBRO (Reported) Azithromycin 250 MG TABLET 1 TAB PO DAILY COPD exacerbation PLEASE TAKE 1 TAB ON 10/03/16 AND ONE TAB ON 10/05/16. Cholecalciferol (Vitamin D3) (Vitamin D) 2,000 UNIT TABLET 4,000 UNIT PO DAILY SUPP (Reported) Citalopram Hydrobromide (Citalopram HBr) 40 MG TABLET 1 TAB PO DAILY MENTAL HEALTH (Reported) Clonazepam 0.5 MG TABLET 1 TAB PO DAILY NEEDED AXNITY (Reported) Cyanocobalamin (Vitamin B-12) 1,000 MCG TABLET 1 TAB PO DAILY SUPP (Reported) Fish Oil/Borage/Flax/Om3,6,9#1 ([place] 3-6-9 1,200 MG Softgel) 1,200 MG CAPSULE 1 CAP PO DAILY SUUP (Reported) Fluticasone/Salmeterol (Advair 250-50 Diskus) 250 MCG-50 MCG/DOSE BLST.W.DEV 1 PUF INH BID BREATHING PROBLEMS (Reported) Melatonin (Melatin) 3 MG TABLET 3 MG PO DAILY INSOMNIA (Reported) Metformin HCl (Metformin HCl ER) 500 MG TAB.ER.24H 1 TAB PO SEE ADMIN CRITERIA DIABETES (Reported) 1 TAB MORNING 2 TAB EVENING Pantoprazole Sodium 40 MG TABLET.DR 1 TAB PO DAILY GI (Reported) Prednisone 10 MG TABLET 1 TAB OTHER SI COPD exacerbation Please: take 4 tabs on 10/03/16 then take 3 tabs on 10/04/16 and 10/05/16 then take 2 tabs on 10/06/16 and 10/07/16 then take 1 tab on 10/08/16 and 10/09/16 then stop. Rosuvastatin Calcium (Crestor) 10 MG TABLET 1 TAB PO DAILY CHOLESTEROL ( Reported) Tiotropium [place] (Spiriva) 18 MCG CAP.W.DEV 1 CAP INH DAILY BREATHING PROBLEMS (Reported) Past History Travel History Traveled to [place] past 21 day No Medical History Neurological: NONE EENT: NONE Cardiovascular: NONE Respiratory: COPD, 02 PRN Gastrointestinal: irritable bowel syndrome Hepatic: NONE Renal: NONE Musculoskeletal: fibromyalgia, osteoarthritis Psychiatric: NONE Endocrine: diabetes Blood Disorders: NONE Cancer(s): NONE CRYSTAL LAPPER/Reproductive: NONE History of MRSA: No History of VRE: No History of CDIFF: No Influenza Vaccine: 06/01/16 Surgical History Surgical History: hysterectomy Past Family/Social History Family History Relations & Conditions if any Relation not specified for: FH: diabetes mellitus FH: lung cancer Psychosocial History Services at Home: Oxygen Primary Language: Thai Smoking Status: Former Smoker ETOH Use: occasional use Illicit Drug Use: denies illicit drug use Functional Ability ADLs Independent: dressing, eating, toileting, bathing. Ambulation: independent IADLs Independent: shopping, housework, finances, food prep, telephone, transportation , medication admin. Review of Systems Review of Systems Constitutional: Reports: chills. EENTM: Reports: no symptoms. Cardiovascular: Reports: no symptoms. Respiratory: Reports: cough, sputum production. GI: Reports: no symptoms. Genitourinary: Reports: no symptoms. Musculoskeletal: Reports: no symptoms. Skin: Reports: no symptoms. Neurological/Psychological: Reports: no symptoms. Hematologic/Endocrine: Reports: no symptoms. Immunologic/Allergic: Reports: no symptoms. All Other Systems: Reviewed and Negative Exam & Diagnostic Data Last 24 Hrs of Vital Signs/I&O Vital Signs Date Time Temp Pulse Resp B/P B/P Pulse O2 O2 Flow FiO2 Mean Ox Delivery Rate 08/25 1644 93 Nasal 3.0L Cannula 08/25 1618 97.8 83 18 122/64 94 Nasal 3.0L Cannula 08/25 1613 95 Nasal 2.5L Cannula 08/25 1308 97.8 90 18 108/69 94 Nasal 2.0L Cannula Intake & Output 08/25 1600 08/25 0800 08/25 0000 Intake Total Output Total Balance Patient 170 lb Weight Weight Reported by Patient Measurement Method Physical Exam General Appearance Alert, Oriented X3, Cooperative, Mild Distress Skin No Rashes, No Breakdown, No Significant Lesion Skin Temp/Moisture Exam: Warm/Dry HEENT Atraumatic, PERRLA, EOMI, Mucous Membr. moist/pink Neck Supple, No JVD Lymphatic Axillary nl, Cervical nl Cardiovascular Regular Rate, Normal S1, Normal S2, No Murmurs Lungs Clear to Auscultation, Normal Air Movement Abdomen Normal Bowel Sounds, Soft, No Tenderness Neurological Normal Gait, Normal Speech Extremities No Clubbing, No Cyanosis, No Edema, Normal Pulses Vascular Normal Pulses, Pulses Symmetrical Last 24 Hrs of Labs/Olu: Laboratory Tests 08/26/17 0655: Sodium Pending, Potassium Pending, Chloride Pending, Carbon Dioxide Pending, Anion Gap Pending, BUN Pending, Creatinine Pending, BUN/Creatinine Ratio Pending , CBC w Diff Pending, WBC Pending, RBC Pending, Hgb Pending, Hct Pending, MCV Pending, MCH Pending, RDW Pending, Plt Count Pending, MPV Pending, PUBS MCHC Pending 08/25/17 1314: Anion Gap 15, Estimated GFR > 60, BUN/Creatinine Ratio 18.9, Glucose 181 H, Calcium 9.8, Total Bilirubin 0.7, AST 20, ALT 39, Alkaline Phosphatase 56, Troponin I < 0.01, Hmd-M-Wszjzsvdroz Pept 137 H, Total Protein 6.7, Albumin 4.2 , Globulin 2.5, Albumin/Globulin Ratio 1.7, PT 10.4, INR 0.99, D-Dimer High Sensitivty < 200, CBC w Diff NO MAN DIFF REQ, RBC 4.13 L, MCV 85.1, MCH 29.0, RDW 14.5, MPV 9.0, Gran % 78.9 H, Lymphocytes % 15.4 L, Monocytes % 5.0, Eosinophils % 0.6, Basophils % 0.1, Absolute Granulocytes 6.4, Absolute Lymphocytes 1.2, Absolute Monocytes 0.4, Absolute Eosinophils 0, Absolute Basophils 0, PUBS MCHC 34.1 Microbiology 08/25 2344 URINE ROUT: Legionella Antigen - COMP 08/25 2344 URINE ROUT: Streptococcus pneumoniae Antigen (M - COMP 08/25 1853 LOWER RESP: Respiratory Culture - COLB 08/25 1853 LOWER RESP: Gram Stain - COLB Diagnostic Data CXR Results Slight increase in the interstitial markings in the mid to lower lungs bilaterally superimposed on underlying emphysema and right upper lobe postsurgical change. This may reflect an interstitial pulmonary edema or an atypical infectious/inflammatory process. Other Results CT-chest: 1. Severe emphysema, stable compared to the 03/03/[address] No superimposed acute changes. 2. Stable left upper lobe pulmonary nodule dating to 06/09/2015. Assessment/Plan Assessment: Ms. Mendoza is a pleasant 66 year old female with PMH COPD on home O2 initially at night BUT over the last 2 months she has been using it 10/03. fibromyalgia, osteoarthritis and type 2 diabetes mellitus who presented to the [facility] ED with a c/o SOB. Admitted for COPD exacerbation. COPD exacerbation * Admit the patient to general floor * Keep O2 saturation over 92% * TRC nebs * IV Solu-Medrol 40 mg every 12 hours * IV azithromycin 250 mg dailyfor 3-5 days * Will check sputum cx., urine strept and ligeonella ag * Will continue Albuterol, spiriva, advir * Pulmonary consult with at am Stable left upper lobe pulmonary nodule Hyperlipidemia, anxiety, ,depression, GERD * Continue home medications Diabetes * sliding scale insulin, fingersticks, diabetic diet Tylenol for pain DVT Prophylaxis is mechanical and Lovenox, Full code, As Ranked By This Provider Problem List: 1. COPD exacerbation Core Measures/Misc (05/04) Acute Coronary Syndrome ACS Diagnosis: No Congestive Heart Failure Congestive Heart Failure Diagnosis No Cerebrovascular Accident CVA/TIA Diagnosis: No VTE (View Protocol) VTE Risk Factors Age>40 No Mechanical VTE Prophylaxis d/t N/A MechProphylax Ordered No VTE Pharm Prophylaxis d/t NA PharmProphylax ordered Sepsis (View protocol) Sepsis Present: No Evan Pearl MD 08/25/172030: Attending MD Review Statement Attending Statement Attending MD Statement: examined this patient, discuss w/resident/PA/GALLERY MANAGER, agreed w/resident/PA/GALLERY MANAGER, discussed with family, reviewed EMR data (avail), reviewed images, amended to note Attending Assessment/Plan: The patient is a 66 yo female with h/o DM2, HTN, fibromyalgia, OA, and COPD on home oxygen (usually only at night) who presented with c/o progressive need for increasing amounts of oxygen. Her oxygen sats were dropping to 80% with minimal activity. She has been using oxygen now throughout the day. She received courses of oral steroids (Prednisone) & Zithromax without improvement. Dr. Davila has been following her regularly as an outpatient and as breathing has worsened over last 2 days (after pipes burst at home), she advised her to present for admission. The patient describes mucous, however cough has been non-productive. No fever or chills (has been on steroids). Physical Exam: VS: T 97.8, P 90, R 18, BP 1008/69, PO 94% on 2L at rest (pt states 80% on RA with minimal exertion HEENT: eyes- PERRLA, EOMI merrick- moist mucosa, no lesions Neck: no JVD Chest: + moderate to severe reduced breath sounds with moderate diffuse wheeze and rhonchi that diminish slightly post cough Cor: RRR nl S1, S2 w/o murm Abd: BS+, soft, NT, - HSM Ext: tr edema, pulses 2+ Neuro: alert & oriented x 3, non-focal exam Labs- as above CT-Chest- no infiltrate, stable nodule, + emphysema Impression/Plan: #COPD Exacerbation with Bronchitis- patient has not been responding to OP therapy - followed by Dr. Davila closely. Plan: Admit to medical floor. TRC Nebs, IV Solumedrol, IV Zithromax Attempt to obtain sputum for C&S Pulmonary Consult- Dr. Davila/Stefany Shields #Acute on Chronic Hypoxic Respiratory Failure- as noted above, the patient usually only requires oxygen at night and now is finding desaturation to 80% with minimal exertion and is requiring 24/7 oxygen during acute illness. Plan: Will treat underlying COPD exacerbation and follow pulse ox. #DM2- normally on Metformin. Expect increase with steroids. Plan: Follow glucoscans and sliding scale insulin. #GERD- on Pantoprazole. Plan: Use omeprazole while in hospital. #Depression/Anxiety- on Amitriptline, Citalopram, Clonazepam. Plan: Continue meds.
--- NOTE | 2017-08-25 20:31 | Admission Certification ---
Admission Certification Certification Statement - As attending physician, I certify that at the time of - admission, based on clinical presentation, severity of - symptoms, need for further diagnostic testing and - therapeutic interventions, and risk of adverse outcomes - without in-hospital treatment, in my clinical assessment, - this patient requires an acute hospital stay for a minimum - of two nights or longer. I have also considered psychsocial - factors such as support system, advanced age, financial - issues, cognitive issues, and failed out-patient treatments, - past re-admission history, safety of patient, and lack of - compliance as applicable. Specific rationale supporting this admission is: The patient presents with COPD exacerbation/bronchitis not responding to outpatient therapy with acute on chronic hypoxic respiratory failure. Needs admission for IV steroids/Abx/aerosol.
[2017-08-25 22:32] VITALS: BP 110/64; BP 122/64
[2017-08-26 04:57] VITALS: BP 110/60
--- NOTE | 2017-08-26 07:54 | PN- Housestaff ---
LynnChristi 08/26/17 0753: Subjective Follow-up For: #COPD Exacerbation w/ Bronchitis #Acute on Chronic hypoxic resp failure #T2DM #GERD #Depression/Anxiety Subjective: No overnight event. Patient felt much improved on breathing, currently on 2.5LNC. Patient acknowledged that she needed to bring the Rouvastatins from home. Acknowledged that we are going to taper her down on IV steroid. Review of Systems Constitutional: Reports: see HPI. Objective Last 24 Hrs of Vital Signs/I&O Vital Signs Date Time Temp Pulse Resp B/P B/P Pulse O2 O2 Flow FiO2 Mean Ox Delivery Rate 08/26 0457 98.5 74 20 110/60 92 Nasal 2.5L Cannula 08/26 0000 97 Nasal 2.5L Cannula 08/25 2232 97.7 94 20 110/64 94 Nasal 2.5L Cannula 08/25 2213 Nasal 2.5L Cannula 08/25 2101 Nasal 3.0L Cannula 08/25 1923 97.2 99 18 103/61 95 Nasal 3.0L Cannula 08/25 1644 93 Nasal 3.0L Cannula 08/25 1618 97.8 83 18 122/64 94 Nasal 3.0L Cannula 08/25 1613 95 Nasal 2.5L Cannula 08/25 1308 97.8 90 18 108/69 94 Nasal 2.0L Cannula Intake & Output 08/26 1600 08/26 0800 08/26 0000 Intake Total 240 360 Output Total 500 Balance 240 -140 Intake, Oral 240 360 Output, Urine 500 Patient 77.111 kg Weight Weight Reported by Patient Measurement Method Physical Exam General Appearance: Alert, Oriented X3, Cooperative, No Acute Distress Cardiovascular: Regular Rate Lungs: Normal Air Movement, mild rhonchi bilateral lung bases, no wheezing heard Abdomen: Soft Neurological: Normal Speech Extremities: No Edema, Normal Pulses Current Medications: Current Medications Sig/Zakia Start time Last Medication Dose Route Stop Time Status Admin Acetaminophen 650 MG Q6P PRN 08/25 1814 AC PO Acetaminophen 1,000 MG Q6P PRN 08/25 181 AC IV Albuterol Sulfate 3 ML TID 08/26 1000 AC INH Albuterol Sulfate 2 PUF Q4-6 PRN PRN 08/25 1930 AC INH Albuterol Sulfate 3 ML ONCE ONE 08/25 1600 DC 08/25 INH 08/25 1601 1644 Amitriptyline HCl 25 MG QPM 08/25 2200 AC 08/25 PO 2230 Atorvastatin Calcium 40 MG 1700 08/26 1700 AC PO Azithromycin 500 MG 1800 08/26 1800 AC Dextrose/Water 250 ML IV Azithromycin 500 MG DAILY 08/26 1000 DC Sodium Chloride 250 ML IV Azithromycin 500 MG DAILY 08/26 1000 DC Dextrose/Water 250 ML IV Azithromycin 500 MG ONCE ONE 08/25 1730 DC 08/25 Sodium Chloride 250 ML IV 08/25 1829 1810 Budesonide/ 2 PUF BID 08/25 2200 AC 08/25 Formoterol Fumarate INH 2230 Ceftriaxone Sodium 1,000 MG DAILY 08/26 1000 CAN IV Ceftriaxone Sodium 0 .STK-MED ONE 08/25 1811 DC .ROUTE Ceftriaxone Sodium 1,000 MG ONCE ONE 08/25 1730 DC 08/25 IV 08/25 173 1810 Citalopram 40 MG QPM 08/25 2200 AC 08/25 Hydrobromide PO 2233 Clonazepam 0.5 MG DAILY NEEDED 08/25 1930 AC PO 09/01 192 Cyanocobalamin 1,000 MCG DAILY 08/25 1925 AC 08/25 PO 2229 Enoxaparin Sodium 40 MG DAILY 08/26 1000 AC SC Fish Oil 1,050 MG QPM 08/25 2200 AC 08/25 PO 2229 Guaifenesin 600 MG Q12 08/26 1000 AC PO Insulin Human Regular 0 TIDAC/HS 08/25 2100 AC 08/26 SC 0803 Melatonin 3 MG 2200 08/25 2200 AC 08/25 PO 2230 Methylprednisolone 40 MG Q12 08/25 2200 AC 08/25 IV 2230 Methylprednisolone 0 .STK-MED ONE 08/25 1821 DC .ROUTE Methylprednisolone 125 MG ONCE ONE 08/25 1730 DC 08/25 IV 08/25 1731 1818 Omeprazole 40 MG QAM 08/26 1000 AC PO Omeprazole 40 MG QPM 08/25 2200 DC PO Tiotropium [place] 1 PUF DAILY 08/25 192 AC INH Last 24 Hrs of Lab/Olu Results Last 24 Hrs of Labs/Mics: Laboratory Tests 08/26/17 0655: Sodium Pending, Potassium Pending, Chloride Pending, Carbon Dioxide Pending, Anion Gap Pending, BUN Pending, Creatinine Pending, BUN/Creatinine Ratio Pending , CBC w Diff Pending, WBC Pending, RBC Pending, Hgb Pending, Hct Pending, MCV Pending, MCH Pending, RDW Pending, Plt Count Pending, MPV Pending, PUBS MCHC Pending 08/25/17 1314: Anion Gap 15, Estimated GFR > 60, BUN/Creatinine Ratio 18.9, Glucose 181 H, Calcium 9.8, Total Bilirubin 0.7, AST 20, ALT 39, Alkaline Phosphatase 56, Troponin I < 0.01, Lga-O-Kejhhrqjcxi Pept 137 H, Total Protein 6.7, Albumin 4.2 , Globulin 2.5, Albumin/Globulin Ratio 1.7, PT 10.4, INR 0.99, D-Dimer High Sensitivty < 200, CBC w Diff NO MAN DIFF REQ, RBC 4.13 L, MCV 85.1, MCH 29.0, RDW 14.5, MPV 9.0, Gran % 78.9 H, Lymphocytes % 15.4 L, Monocytes % 5.0, Eosinophils % 0.6, Basophils % 0.1, Absolute Granulocytes 6.4, Absolute Lymphocytes 1.2, Absolute Monocytes 0.4, Absolute Eosinophils 0, Absolute Basophils 0, PUBS MCHC 34.1 Microbiology 08/25 2344 URINE ROUT: Legionella Antigen - COMP 08/25 2344 URINE ROUT: Streptococcus pneumoniae Antigen (M - COMP 08/25 1853 LOWER RESP: Respiratory Culture - COLB 08/25 1853 LOWER RESP: Gram Stain - COLB Assessment/Plan Assessment: Ms. Mendoza is a pleasant 66 year old female with PMH COPD on home O2 initially at night BUT over the last 2 months she has been using it 10/03. fibromyalgia, osteoarthritis and type 2 diabetes mellitus who presented to the [facility] with a c/o SOB. She had been on home O2 at baseline 2L and home. TOY CONSULTANT, patient receieved oral Prednisone and Zithromax without improvement. Dr. Davila advised the patient to present for admission. The patient described mucous, however non-productive cough, and denied fever or chills. ER Course: VS: T 97.8, P 90, R 18, BP 1008/69, PO 94% on 2L at rest (pt states 80% on RA with minimal exertion) Physical exams unremarkable except moderate to severe reduced breath sounds in bilateral lungs with moderate diffuse wheeze and rhonchi that diminish slightly post cough. Trace edema noticed on BLE. CT-Chest- no infiltrate, stable nodule, + emphysema Patient was admitted to General Medicine for the management of the following: #COPD Exacerbation w/ Acute on Chronic Hypoxic Respiratory Failure - TRC Nebs + Mucinex, IV Solumedrol 40mg q12, tapered to daily today, Continued IV Zithromax - Pending sputum C&S - Unlikely pneumonia per imaging, will continue monitor - Patient currently tapered down to baseline 2L and breathing comfortbly w/o wheezing #DM2- normally on Metformin. Expect increase with steroids. - Novolog SS + AccuChek #Hx of GERD, Depression/Anxiety, IBS - Patient was continued on Omeprazole, Amitriptline, Citalopram, Clonazepam, Fibercon/Miralax DVT PPX Lovenox+ALPS Diabetic Diet Full Code Problem List: 1. IBS (irritable bowel syndrome) 2. Fibromyalgia 3. COPD exacerbation 4. Hypoxia Pain Ratin Pain Location: NA Pain Goal: Remain pain free Pain Plan: see AP Tomorrow's Labs & Rationales: NEDA DerasSushantdayron 08/26/17 1251: Attending MD Review Statement Attending Statement Attending MD Statement: examined this patient, discuss w/resident/PA/PLASTIC MOLDING OPERATOR, agreed w/resident/PA/PLASTIC MOLDING OPERATOR, discussed with family, reviewed EMR data (avail), discussed with nursing, discussed with case mgmt, reviewed images, amended to note Attending Assessment/Plan: #COPD Exacerbation with Bronchitis improving- Plan: continue treatment. TRC Nebs, Taper ateroids, abx. Pulmonary inform. #Acute on Chronic Hypoxic Respiratory Failure- improving. check walking pulse oxi before dc. #DM2- normally on Metformin. Expect increase with steroids. Plan: RISS and sliding scale insulin. #GERD- c/w PPI #Depression/Anxiety- on Amitriptline, Citalopram, Clonazepam. Plan: Continue meds.
[2017-08-26 08:07] LABS: ABSOLUTE BASOPHIL COUNT 0 /CUMM (0.0-0.2); ABSOLUTE EOSINOPHIL COUNT 0 /CUMM (0.0-0.7); ABSOLUTE GRANULOCYTE CT 7.3 /CUMM (1.4-6.5); ABSOLUTE LYMPH COUNT 1.3 /CUMM (1.2-3.4); ABSOLUTE MONOCYTE COUNT 0.4 /CUMM (0.10-0.60); BASOPHIL % 0.3 % (0.0-2.0); EOSINOPHIL % 0 % (0-5); GRANULOCYTE % 80.8 % (42.2-75.2); HEMATOCRIT 34.4 % (37-47); MEAN CORPUSCULAR HGB 29.2 PG (27.0-31.0); MEAN CORPUSCULAR HGB CONC 34.1 G/DL (33.0-37.0); MEAN CORPUSCULAR VOLUME 85.7 FL (81.0-99.0); MEAN PLATELET VOLUME 8.9 FL (7.4-10.4); PLATELET COUNT 289 /CUMM (130-400); RBC DISTRIBUTION WIDTH 14.5 % (11.5-14.5); RED BLOOD CELL CT 4.01 /CUMM (4.20-5.40); WHITE BLOOD CELL COUNT 9.1 /CUMM (4.8-10.8)
--- NOTE | 2017-08-26 14:16 | Patient Discharge Instructions ---
Discharge Instructions General Discharge Information You were seen/treated for: #COPD Exacerbation w/ Bronchitis #Acute on Chronic hypoxic resp failure #T2DM #GERD #Depression/Anxiety Special Instructions: - Please follow up with your resin maker Dr. Davila within 1-2 week of discharge. - Please follow up with your primary care physician within 1-2 week of discharge. Inform your primary care physician of this admission to [facility]. - Continue your current medications per discharge instructions. - Please watch for these problems: Fever, Chills, Nausea, Vomiting, Shortness of Breath, Productive Cough, Chest Pain/Discomfort, Abdominal Pain, Active Bleeding or Bloody urine/stool. Diet Continue normal diet: Yes Activity Full Activity/No Limits: Yes Acute Coronary Syndrome Inclusion Criteria At DC or during hospital stay patient has or had the following: ACS DIAGNOSIS No Discharge Core Measures Meds if any: Prescribed or Continued at Discharge Meds if any: NOT Prescribed or Continued at Discharge Congestive Heart Failure Inclusion Criteria At DC or during hospital stay patient has or had the following: CHF DIAGNOSIS No Discharge Core Measures Meds if any: Prescribed or Continued at Discharge Meds if any: NOT Prescribed or Continued at Discharge Cerebrovascular accident Inclusion Criteria At DC or during hospital stay patient has or had the following: CVA/TIA Diagnosis No Discharge Core Measures Meds if any: Prescribed or Continued at Discharge Meds if any: NOT Prescribed or Continued at Discharge Venous thromboembolism Inclusion Criteria VTE Diagnosis No VTE Type NONE VTE Confirmed by (Test) NONE Discharge Core Measures - Per Current guidelines, there needs to be overlap - treatment for the first 5 days of Warfarin therapy. - If discharged on Warfarin prior to 5 days of - overlap therapy, the patient will need to be - assessed for post discharge needs including - *Post discharge parental anticoagulation - *Warfarin and/or parental anticoagulation education - *Follow up date to check INR post discharge At least 5 days overlap therapy as Inpatient No Meds if any: Prescribed or Continued at Discharge Note: Overlap Therapy is Warfarin and Anticoagulant Meds if any: NOT Prescribed or Continued at Discharge
--- NOTE | 2017-08-26 14:17 | Discharge Summary ---
Visit Information Visit Dates Admission Date: 08/25/17 Discharge Date: 08/27/17 Hospital Course Course Attending Physician: Evan Pearl MD Primary Care Physician: Seferino Rahman MD Hospital Course: Ms. Mendoza is a pleasant 66 year old female with PMH COPD on home O2 initially at night BUT over the last 2 months she has been using it /. fibromyalgia, osteoarthritis and type 2 diabetes mellitus who presented to the [place] ED with a c/o SOB. She had been on home O2 at baseline 2L and home. 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 Dr. Davila advised the patient to present for admission. The patient described mucous, however non-productive cough, and denied fever or chills. ER Course: VS: T 97.8, P 90, R 18, BP 1008/69, PO 94% on 2L at rest (pt states 80% on RA with minimal exertion) Physical exams unremarkable except moderate to severe reduced breath sounds in bilateral lungs with moderate diffuse wheeze and rhonchi that diminish slightly post cough. Trace edema noticed on BLE. CT-Chest- no infiltrate, stable nodule, + emphysema Patient was admitted to General Medicine for the management of the following: #COPD Exacerbation w/ Acute on Chronic Hypoxic Respiratory Failure Upon admission, patient was started on TRC Nebs + Mucinex, IV solumedrol 40mg twice daily, and later tapered down to oral prednisone. Patient was also given zithromax for infection prophylaxis in COPD. Patient's sputum culture had no growth over hospital course. Patient had no signs of pneumonia on imaging, and remained afebrile without leukocytosis over the hosptial stay. Patient was discharge with a slow taper of prednisone and 2 more days of oral zithromax. Patient was tapered down to her oxygen baseline of 2L NC, and felt remarkably improved clinically. #DM2- Patient was using Metformin at home. Patient was started on Novolog Sliding scale during hosptal stay for blood sugar control. #Hx of GERD, Depression/Anxiety, IBS Patient was continued on home dose of Omeprazole, Amitriptline, Citalopram, Clonazepam, Fibercon/Miralax DVT PPX Lovenox+ALPS Diabetic Diet Full Code Allergies: Coded Allergies: ampicillin (Intermediate, DIARREHA 08/26/17) atorvastatin (Intermediate, SEVERE MUSCLE WEAKNESS 08/26/17) ciprofloxacin (From CIPRO) (Intermediate, RASH 08/26/17) simvastatin (Intermediate, SEVERE MUSCLE WEAKNESS 08/26/17) sulfamethoxazole (From SEPTRA) (Intermediate, ITCHING, DIARREHA, MUSCLE WEAKNESS 08/26/17) dicyclomine (UNKNOWN 11/28/15) estradiol (UNKNOWN 11/28/15) trimethoprim (From SEPTRA) (DIARRHEA 11/28/15) Pertinent Lab Results: SERVICE DATE: 08/25/17-131 EXAM TYPE: RAD - XRY-CHEST XRAY, TWO VIEWS IMPRESSION: Slight increase in the interstitial markings in the mid to lower lungs bilaterally superimposed on underlying emphysema and right upper lobe postsurgical change. This may reflect an interstitial pulmonary edema or an atypical infectious/inflammatory process. SERVICE DATE: 08/25/17-171 EXAM TYPE: CAT - CT CHEST WO IV CONTRAST IMPRESSION: 1. Severe emphysema, stable compared to the 03/03/[address] No superimposed acute changes. 2. Stable left upper lobe pulmonary nodule dating to 06/09/2015. Laboratory Tests 08/27 08/26 0735 0655 Chemistry Sodium (137 - 145 mmol/L) 142 Potassium (3.5 - 5.1 mmol/L) 4.5 Chloride (98 - 107 mmol/L) 104 Carbon Dioxide (22 - 30 mmol/L) 26 Anion Gap (5 - 16) 12 BUN (7 - 17 mg/dL) 20 H Creatinine (0.5 - 1.0 mg/dL) 0.8 Estimated GFR (>60 ml/min) > 60 BUN/Creatinine Ratio (7 - 25 %) 25.0 Hematology CBC w Diff NO MAN DIFF REQ NO MAN DIFF REQ WBC (4.8 - 10.8 /CUMM) 10.8 9.1 RBC (4.20 - 5.40 /CUMM) 4.20 4.01 L Hgb (12.0 - 16.0 G/DL) 12.1 11.7 L Hct (37 - 47 %) 36.2 L 34.4 L MCV (81.0 - 99.0 FL) 86.3 85.7 MCH (27.0 - 31.0 PG) 28.8 29.2 RDW (11.5 - 14.5 %) 14.7 H 14.5 Plt Count (130 - 400 /CUMM) 296 289 MPV (7.4 - 10.4 FL) 8.8 8.9 Gran % (42.2 - 75.2 %) 51.6 80.8 H Lymphocytes % (20.5 - 51.1 %) 39.7 14.3 L Monocytes % (1.7 - 9.3 %) 7.1 4.6 Eosinophils % (0 - 5 %) 1.3 0 Basophils % (0.0 - 2.0 %) 0.3 0.3 Absolute Granulocytes (1.4 - 6.5 /CUMM) 5.6 7.3 H Absolute Lymphocytes (1.2 - 3.4 /CUMM) 4.3 H 1.3 Absolute Monocytes (0.10 - 0.60 /CUMM) 0.8 H 0.4 Absolute Eosinophils (0.0 - 0.7 /CUMM) 0.1 0 Absolute Basophils (0.0 - 0.2 /CUMM) 0 0 PUBS MCHC (33.0 - 37.0 G/DL) 33.3 34.1 08/25 1314 Chemistry Sodium (137 - 145 mmol/L) 143 Potassium (3.5 - 5.1 mmol/L) 4.5 Chloride (98 - 107 mmol/L) 105 Carbon Dioxide (22 - 30 mmol/L) 22 Anion Gap (5 - 16) 15 BUN (7 - 17 mg/dL) 17 Creatinine (0.5 - 1.0 mg/dL) 0.9 Estimated GFR (>60 ml/min) > 60 BUN/Creatinine Ratio (7 - 25 %) 18.9 Glucose (65 - 99 mg/dL) 181 H Calcium (8.4 - 10.2 mg/dL) 9.8 Total Bilirubin (0.2 - 1.3 mg/dL) 0.7 AST (14 - 36 U/L) 20 ALT (9 - 52 U/L) 39 Alkaline Phosphatase (<127 U/L) 56 Troponin I (< 0.11 ng/ml) < 0.01 Azk-W-Xzzegmcdjtr Pept (<125 pg/mL) 137 H Total Protein (6.3 - 8.2 g/dL) 6.7 Albumin (3.5 - 5.0 g/dL) 4.2 Globulin (1.9 - 4.2 gm/dL) 2.5 Albumin/Globulin Ratio (1.1 - 2.2 %) 1.7 Coagulation PT (9.4 - 12.5 SEC) 10.4 INR (0.90 - 1.19) 0.99 D-Dimer High Sensitivty (0 - 243 ng/ml) < 200 Hematology CBC w Diff NO MAN DIFF REQ WBC (4.8 - 10.8 /CUMM) 8.1 RBC (4.20 - 5.40 /CUMM) 4.13 L Hgb (12.0 - 16.0 G/DL) 12.0 Hct (37 - 47 %) 35.1 L MCV (81.0 - 99.0 FL) 85.1 MCH (27.0 - 31.0 PG) 29.0 RDW (11.5 - 14.5 %) 14.5 Plt Count (130 - 400 /CUMM) 272 MPV (7.4 - 10.4 FL) 9.0 Gran % (42.2 - 75.2 %) 78.9 H Lymphocytes % (20.5 - 51.1 %) 15.4 L Monocytes % (1.7 - 9.3 %) 5.0 Eosinophils % (0 - 5 %) 0.6 Basophils % (0.0 - 2.0 %) 0.1 Absolute Granulocytes (1.4 - 6.5 /CUMM) 6.4 Absolute Lymphocytes (1.2 - 3.4 /CUMM) 1.2 Absolute Monocytes (0.10 - 0.60 /CUMM) 0.4 Absolute Eosinophils (0.0 - 0.7 /CUMM) 0 Absolute Basophils (0.0 - 0.2 /CUMM) 0 PUBS MCHC (33.0 - 37.0 G/DL) 34.1 Disposition Summary Disposition Principal Diagnosis: #COPD Exacerbation w/ Bronchitis #Acute on Chronic hypoxic resp failure #T2DM #GERD #Depression/Anxiety Additional Diagnosis: As above Discharge Disposition: home or self care Discharge Instructions General Discharge Information Code Status: Full Code Patient's Diet: Regular Patient's Activity: As tolerated Follow-Up Instructions/Appts: - Please follow up with your hoop cutter Dr. Davila within 1-2 week of discharge. - Please follow up with your primary care physician within 1-2 week of discharge. Inform your primary care physician of this admission to [facility]. - Continue your current medications per discharge instructions. - Please watch for these problems: Fever, Chills, Nausea, Vomiting, Shortness of Breath, Productive Cough, Chest Pain/Discomfort, Abdominal Pain, Active Bleeding or Bloody urine/stool. Medications at Discharge Discharge Medications: Stop taking the following medications: Azithromycin (Azithromycin) 250 MG TABLET ORAL DAILY Qty = 2 Continue taking these medications: Pantoprazole Sodium (Pantoprazole Sodium) 40 MG TABLET.DR 1 Tablet ORAL DAILY Qty = 90 Comments: PRILOSEC Last Taken: 08/27/17 Time: 11:00AM Fluticasone/Salmeterol (Advair 250-50 Diskus) 250 MCG-50 MCG/DOSE BLST.W.DEV 1 Puff Inhale through mouth TWICE DAILY Qty = 180 Comments: NOT GIVEN WHILE HOSPITALIZED, SYMBICORT GIVEN 10/02/16 AT 10:00 AM Citalopram Hydrobromide (Citalopram HBr) 40 MG TABLET 1 Tablet ORAL DAILY Qty = 90 Comments: LAST DOSE GIVEN 10/01/16 AT 10:00 PM Metformin HCl (Metformin HCl ER) 500 MG TAB.ER.24H 1 Tablet ORAL SEE INSTRUCTIONS Qty = 270 Instructions: 1 TAB MORNING 2 TAB EVENING Comments: NOT GIVEN WHILE HOSITALIZED Rosuvastatin Calcium (Crestor) 10 MG TABLET 1 Tablet ORAL DAILY Qty = 90 Comments: NOT GIVEN WHILE HOSPITALIZED Tiotropium Delmita (Spiriva) 18 MCG CAP.W.DEV 1 Capsule Inhale through mouth DAILY Qty = 90 Comments: Last Taken: 08/27/17 Time: 11:00AM Amitriptyline HCl (Amitriptyline HCl) 25 MG TABLET 1 Tablet ORAL Every night Qty = 90 Comments: Last Taken: 08/26/17 Time: 9:00PM Albuterol Sulfate (Ventolin Hfa) 90 MCG HFA.AER.AD 2 Puff Inhale through mouth EVERY 4-6 HOURS NEEDED as needed for BREATHING PROBLEMS Qty = 54 Comments: NOT GIVEN WHILE HOSPITALIZED Fish Oil/Borage/Flax/Om3,6,9#1 (Garrett 3-6-9 1,200 MG Softgel) 1,200 MG CAPSULE 1 Capsule ORAL DAILY Comments: Last Taken: 08/26/17 Time: 9:00 PM Cyanocobalamin (Vitamin B-12) 1,000 MCG TABLET 1 Tablet ORAL DAILY Comments: Last Taken: 08/27/17 Time: 11:00 AM Cholecalciferol (Vitamin D3) (Vitamin D) 2,000 UNIT TABLET 4,000 Unit ORAL DAILY Comments: NOT GIVEN DURING THIS ADMISSION Melatonin (Melatin) 3 MG TABLET 3 Milligram ORAL DAILY Comments: Last Taken: 08/26/17 Time: 9:00PM Clonazepam (Clonazepam) 0.5 MG TABLET 1 Tablet ORAL DAILY NEEDED Comments: NOT GIVEN WHILE HOSPITALIZED Prednisone (Prednisone) 10 MG TABLET 1 Tablet OTHER See Instructions Qty = 16 Instructions: Please: take 4 tabs on 10/03/16 then take 3 tabs on 10/04/16 and 10/05/16 then take 2 tabs on 10/06/16 and 10/07/16 then take 1 tab on 10/08/16 and 10/09/16 then stop. Comments: 60 MG Last Taken: 08/27/17 Time: 11:00AM Albuterol Sulfate (Albuterol Sulfate) 1.25 MG/3 ML VIAL.NEB 1 Vial Inhale Solution EVERY 4-6 HOURS as needed for COPD Qty = 150 Start taking the following new medications: Prednisone (Prednisone) 10 MG TABLET 1 Tablet ORAL TWICE DAILY Qty = 30 No Refills Instructions: . Comments: 08/28-:Please take 5 tablets, once daily 08/30-:Please take 4 tablets, once daily 09/01-:Please take 3 tablets, once daily 09/03-:Please take 2 tablets, once daily 09/05-:Please take 1 tablets, once daily 09/07: STOP Azithromycin (Zithromax) 250 MG TABLET 1 Tablet ORAL DAILY Qty = 2 No Refills Copies To: Josiah CORDON,Seferino Brooke
[2017-08-26 14:51] VITALS: BP 120/74
[2017-08-26 22:11] VITALS: BP 124/84
[2017-08-27 06:08] VITALS: BP 136/84
[2017-08-27 09:31] LABS: ABSOLUTE BASOPHIL COUNT 0 /CUMM (0.0-0.2); ABSOLUTE EOSINOPHIL COUNT 0.1 /CUMM (0.0-0.7); ABSOLUTE GRANULOCYTE CT 5.6 /CUMM (1.4-6.5); ABSOLUTE LYMPH COUNT 4.3 /CUMM (1.2-3.4); ABSOLUTE MONOCYTE COUNT 0.8 /CUMM (0.10-0.60); BASOPHIL % 0.3 % (0.0-2.0); EOSINOPHIL % 1.3 % (0-5); GRANULOCYTE % 51.6 % (42.2-75.2); HEMATOCRIT 36.2 % (37-47); MEAN CORPUSCULAR HGB 28.8 PG (27.0-31.0); MEAN CORPUSCULAR HGB CONC 33.3 G/DL (33.0-37.0); MEAN CORPUSCULAR VOLUME 86.3 FL (81.0-99.0); MEAN PLATELET VOLUME 8.8 FL (7.4-10.4); PLATELET COUNT 296 /CUMM (130-400); RBC DISTRIBUTION WIDTH 14.7 % (11.5-14.5); WHITE BLOOD CELL COUNT 10.8 /CUMM (4.8-10.8)
[2017-08-27] MEDS ORDERED: PREDNISONE10 M2 PO ×2 (10:31→13:03)
--- NOTE | 2017-08-27 10:38 | PN- Housestaff ---
Christi Lynn 08/27/17 1038: Subjective Follow-up For: #COPD Exacerbation w/ Bronchitis #Acute on Chronic hypoxic resp failure #T2DM #GERD #Depression/Anxiety Subjective: No overnight event. Patient felt much improved without specific complaint. Review of Systems Constitutional: Reports: see HPI. Objective Last 24 Hrs of Vital Signs/I&O Vital Signs Date Time Temp Pulse Resp B/P B/P Pulse O2 O2 Flow FiO2 Mean Ox Delivery Rate 08/27 0834 94 Nasal 3.0L Cannula 08/27 0608 98.3 95 18 136/84 95 Nasal 2.5L Cannula 08/27 0000 Nasal 2.5L Cannula 08/26 2211 97.8 76 18 124/84 96 Nasal 3.0L Cannula 08/26 1930 Nasal 3.0L Cannula 08/26 1600 95 Nasal 2.5L Cannula 08/26 1451 98.2 87 20 120/74 94 Nasal Cannula 08/26 1131 91 Nasal 2.5L Cannula Intake & Output 08/27 1600 08/27 0800 08/27 0000 Intake Total 490 850 Output Total Balance 490 850 Intake, IV 10 10 Intake, Oral 480 840 Number 1 0 Bowel Movements Physical Exam General Appearance: Alert, Oriented X3, Cooperative, No Acute Distress Cardiovascular: Regular Rate Lungs: Normal Air Movement, some mild rhonchi b/l lungs but no wheezing Abdomen: Normal Bowel Sounds, Soft, No Tenderness Neurological: Normal Speech Current Medications: Current Medications Sig/Zakia Start time Last Medication Dose Route Stop Time Status Admin Acetaminophen 650 MG Q6P PRN 08/25 1815 AC PO Acetaminophen 1,000 MG Q6P PRN 08/25 1815 AC IV Albuterol Sulfate 3 ML TID 08/26 1000 AC 08/27 INH 0831 Albuterol Sulfate 2 PUF Q4-6 PRN PRN 08/25 1930 AC INH Amitriptyline HCl 25 MG QPM 08/25 2200 AC 08/26 PO 2047 Atorvastatin Calcium 40 MG 1700 08/26 1700 CAN PO Azithromycin 500 MG 1800 08/26 1800 AC 08/26 Dextrose/Water 250 ML IV 1705 Budesonide/ 2 PUF BID 08/25 2199 AC 08/26 Formoterol Fumarate INH 204 Citalopram 40 MG QPM 08/25 220 AC 08/26 Hydrobromide PO 204 Clonazepam 0.5 MG DAILY NEEDED 08/25 1929 AC PO 09/01 1928 Cyanocobalamin 1,000 MCG DAILY 08/25 192 AC 08/26 PO 0911 Enoxaparin Sodium 40 MG DAILY 08/26 1000 AC 08/26 SC 0912 Fish Oil 1,050 MG QPM 08/25 2200 AC 08/26 PO 2047 Guaifenesin 600 MG Q12 08/26 1000 AC 08/26 PO 2047 Insulin Aspart 0 TIDAC 08/26 1700 AC 08/26 SC 1703 Insulin Human Regular 6 UNITS .STK-MED ONE 08/26 1140 DC IV 08/26 1141 Insulin Human Regular 0 TIDAC/HS 08/25 2100 DC 08/26 SC 1212 Melatonin 3 MG 2200 08/25 2200 AC 08/26 PO 204 Methylprednisolone 40 MG DAILY 08/27 1000 CAN IV Methylprednisolone 40 MG Q12 08/25 2200 DC 08/26 IV 0913 Omeprazole 40 MG QAM 08/26 1000 AC 08/26 PO 0911 Polycarbophil 1,250 MG QPM 08/26 2200 AC 08/26 PO 2047 Polyethylene Glycol 17 GM DAILY 08/26 1000 AC 08/26 PO 0912 Prednisone 60 MG DAILY 08/27 1000 AC PO Rosuvastatin Calcium 10 MG 1700 08/26 1700 AC 08/26 PO 1703 Tiotropium Lynx 1 PUF DAILY 08/25 192 AC 08/26 INH 0910 Last 24 Hrs of Lab/Olu Results Last 24 Hrs of Labs/Mics: Laboratory Tests 08/27/17 0735: CBC w Diff Pending, WBC Pending, RBC Pending, Hgb Pending, Hct Pending, MCV Pending, MCH Pending, RDW Pending, Plt Count Pending, MPV Pending, Gran % Pending, Lymphocytes % Pending, Monocytes % Pending, Eosinophils % Pending, Basophils % Pending, Absolute Granulocytes Pending, Absolute Lymphocytes Pending , Absolute Monocytes Pending, Absolute Eosinophils Pending, Absolute Basophils Pending, PUBS MCHC Pending Assessment/Plan Assessment: Ms. Mendoza is a pleasant 66 year old female with PMH COPD on home O2 initially at night BUT over the last 2 months she has been using it /. fibromyalgia, osteoarthritis and type 2 diabetes mellitus who presented to the [place] ED with a c/o SOB. She had been on home O2 at baseline 2L and home. RCIS, patient receieved oral Prednisone and Zithromax without improvement. Dr. Davila advised the patient to present for admission. The patient described mucous, however non-productive cough, and denied fever or chills. ER Course: VS: T 97.8, P 90, R 18, BP 1008/69, PO 94% on 2L at rest (pt states 80% on RA with minimal exertion) Physical exams unremarkable except moderate to severe reduced breath sounds in bilateral lungs with moderate diffuse wheeze and rhonchi that diminish slightly post cough. Trace edema noticed on BLE. CT-Chest- no infiltrate, stable nodule, + emphysema Patient was admitted to General Medicine for the management of the following: #COPD Exacerbation w/ Acute on Chronic Hypoxic Respiratory Failure - TRC Nebs + Mucinex, Po prednisone 60mg today, Continued IV Zithromax day 3, will give 2 more days w/ oral zithromax - Pending sputum C&S - Unlikely pneumonia per imaging, will continue monitor - Patient currently tapered down to baseline 2L and breathing comfortbly w/o wheezing #DM2- normally on Metformin. Expect increase with steroids. - Novolog SS + AccuChek #Hx of GERD, Depression/Anxiety, IBS - Patient was continued on Omeprazole, Amitriptline, Citalopram, Clonazepam, Fibercon/Miralax DVT PPX Lovenox+ALPS Diabetic Diet Full Code Problem List: 1. Hypoxia 2. IBS (irritable bowel syndrome) 3. Fibromyalgia 4. COPD exacerbation Pain Ratin Pain Location: NA Pain Goal: Remain pain free Pain Plan: see Ap Tomorrow's Labs & Rationales: CBC/BEP AugustaLy anguiano 08/27/17 1110: Attending MD Review Statement Attending Statement Attending MD Statement: examined this patient, discuss w/resident/PA/CURING FINISHER, agreed w/resident/PA/CURING FINISHER, discussed with family, reviewed EMR data (avail), discussed with nursing, discussed with case mgmt, reviewed images, amended to note Attending Assessment/Plan: #COPD Exacerbation with Bronchitis improving- Plan: continue treatment. TRC Nebs, Taper ateroids, abx. Pulmonary informed. #Acute on Chronic Hypoxic Respiratory Failure- improving. Patient on baseline or near baseline oxygen for COPD #DM2- normally on Metformin. Expect increase with steroids. Plan: RISS and sliding scale insulin. #GERD- c/w PPI #Depression/Anxiety- on Amitriptline, Citalopram, Clonazepam. Case management for dc planning , home situaton with pipe burst. Patient known to pulmonary group here and follow outpatient at [facility] also for iv solu-medrol if needed.
[2017-08-27] MEDS ORDERED: ZITHROMAX250 M2 PO ×2 (11:00→13:03)
== END 2017-08-27 14:49 | DRG 189 ==
LOC: ERH 12:56 → ERHI 17:38 → 2NB 17:38 → ENRESERV 20:10 → 2NB 20:51 → ENPENDDIS 08-27 12:03 → 2NB 08-27 14:49
PROVIDERS: Physician Assistant; Student in an Organized Health Care Education/Training Program
DX: J96.21 Acute and chronic respiratory failure with hypoxia (principal); E11.8 Type 2 diabetes mellitus with unspecified complications; Z99.81 Dependence on supplemental oxygen; J44.0 Chronic obstructive pulmonary disease with (acute) lower respiratory infection; J44.1 Chronic obstructive pulmonary disease with (acute) exacerbation; J20.9 Acute bronchitis, unspecified; Z79.84 Long term (current) use of oral hypoglycemic drugs; I10 Essential (primary) hypertension; F32.9 Major depressive disorder, single episode, unspecified; F41.9 Anxiety disorder, unspecified; M19.90 Unspecified osteoarthritis, unspecified site; M79.7 Fibromyalgia
CPT/HCPCS: 2NBSP; 36415; 71046; 82436; 87070; 87449; 87450; 93005; 93010; J0456; J0696; J1650; J1815; J2920; J2930; J3490; J7040; J7060